=== PATIENT | male | born 1985 ===

== ENCOUNTER 2024-07-26 10:30 | Emergency (ER) | payer BC, SELFPAY ==
--- NOTE | ~2024-07-26 | CT_ITS ---
CLINICAL HISTORY: right sided pleuritic pain, elevated d dimer CT angiography chest with contrast. With MIP MPR Postprocessing. Comparison: chest x-ray from 07/26/2024 Findings: No central pulmonary embolism. No aortic dissection accounting for artifacts. No enlarged mediastinal lymphadenopathy. Mild residual thymic tissue and mild mediastinal fluid present. Mild bibasilar atelectasis. Mild bilateral emphysematous changes. Small right pleural effusion with minimal right basilar opacities. Multifocal ligament calcifications of the thoracic spine. Mild degenerative change of the left shoulder with sclerosis of the bone islands. Mild/borderline steatotic change of the imaged liver IMPRESSION: 1. No central pulmonary embolism. 2. Small right pleural effusion with subsegmental right basilar atelectasis and/or pneumonitis. This document has been electronically signed by: Korey Rivas MD on 07/26/2024 21:06:31
--- NOTE | ~2024-07-26 | US_ITS ---
EXAMINATION: US ABDOMEN LIMITED CLINICAL INFORMATION: Right upper quadrant pain radiating to back.. COMPARISON: None available. TECHNIQUE: Real-time imaging of the right upper quadrant abdominal viscera. FINDINGS: PANCREAS: Visualized portions are unremarkable. LIVER: The liver is normal in size. The liver contour is normal. There is diffusely increased echogenicity with focal foci of fatty sparing. No suspicious focal hepatic lesion. There is no intrahepatic biliary duct dilatation seen. GALLBLADDER: Gallbladder demonstrates numerous intraluminal gallstones, largest measuring up to 8 mm. No wall thickening or pericholecystic fluid. Negative sonographic Treadwell sign. COMMON BILE DUCT: Normal in caliber measuring 0.3 cm in diameter. RIGHT KIDNEY: No hydronephrosis. No renal calculi or focal parenchymal lesions. The kidney measures 12.0 cm in maximum dimension. FREE FLUID: None. US/US abdomen limited IMPRESSION: 1. Diffuse fatty infiltration of the liver with foci of fatty sparing. 2. Cholelithiasis. No sonographic evidence of acute cholecystitis. Electronically signed by: Raffaele Knight MD 07/26/2024 01:27 PM EDT
--- NOTE | ~2024-07-26 | XR_ITS ---
EXAMINATION: XR CHEST 2 VIEWS HISTORY: r abd and chest pain COMPARISON: There are no prior studies for comparison. FINDINGS: PA and lateral views of the chest are submitted. The lungs are expanded and clear. There is no pleural effusion, pneumothorax, or pulmonary vascular congestion. The heart is normal in size. The bones are intact. XR/XR chest 2V IMPRESSION: Normal examination of the chest. Electronically signed by: Naren Aldana MD 07/26/2024 11:12 AM EDT
[2024-07-26 10:37] VITALS: BP 148/93; PULSE 86; RESP 19; TEMP 36.6; O2SAT 98; BMI 31.6
[2024-07-26 11:48] LABS: MANUAL DIFF FLAG NO
[2024-07-26 11:49] LABS: Basophils Absolute Auto 0.1 X10*3/uL (0.0-0.2); Basophils Percent Auto 0.8 % (0-2); Eosinophils Absolute Auto 0.3 X10*3/uL (0.0-0.4); Eosinophils Percent Auto 3.3 % (0-4); Hematocrit 44.6 % (42.0-52.0); Hemoglobin 15.4 g/dl (14.0-18.0); Imm Gran Abs Auto 0.05 X10*3/uL (0.00-0.03); Imm Gran Pct Auto 0.5 % (0.0-0.4); Lymphocytes Absolute Auto 2.4 X10*3/uL (1.2-4.9); Lymphocytes Percent Auto 25.6 % (20-40); Mean Corpuscular HGB Conc 34.5 g/dl (31.0-36.0); Mean Corpuscular Hemoglobin 28.1 pg (27.0-33.0); Mean Corpuscular Volume 81.4 fL (80.0-98.0); Mean Platelet Volume 9.2 fL (9.4-12.4); Monocytes Absolute Auto 0.6 X10*3/uL (0.1-1.2); Monocytes Percent Auto 6.6 % (2-11); Neutrophils Absolute Auto 5.8 x10*3/uL (2.0-8.3); Neutrophils Percent Auto 63.2 % (45-73); Platelet Count 303 X10*3/uL (160-400); Red Blood Count 5.48 X10*6/uL (4.60-5.80); Red Cell Distribution Width 12.4 % (11.0-16.0); White Blood Count 9.2 X10*3/uL (4.8-10.8)
[2024-07-26 11:57] LABS: Prothrombin Time 11.2 SEC (10.9-12.4)
[2024-07-26 12:16] LABS: Alanine Aminotransferase 53 U/L (0-40); Albumin Level 4.4 g/dL (3.5-5.0); Alkaline Phosphatase 52 U/L (39-117); Anion Gap 11 (12-20); Aspartate Amino Transferase 44 U/L (5-37); Bilirubin Direct 0.1 mg/dL (0.0-0.5); Bilirubin Total 0.6 mg/dL (0.0-1.0); Blood Urea Nitrogen 10 mg/dL (9-16); Calcium 9.6 mg/dL (8.4-10.2); Carbon Dioxide 24 mmol/L (22-29); Chloride 108 mmol/L (96-108); Creatinine Clr Calc Pharmacy 147.6; Estimated Glomerular Filt Rate > 60; Glucose Random 89 mg/dL (60-115); Lipase 14 U/L (8-78); Potassium 4.5 mmol/L (3.3-5.1); Sodium 138 mmol/L (135-145); Total Protein 8.2 g/dL (6.5-8.0)
--- NOTE | 2024-07-26 17:31 | ED_ITS ---
HPI - General Adult General Chief complaint: Abdominal Pain Stated complaint: R side pain sent from urgent care Time Seen by Provider: 07/26/24 17:31 History of Present Illness ED Provider: Mike LAMA narrative: The patient is a 38-year-old male. He has a history of being hard of hearing but no other significant past medical history he is aware of. He has not seen a primary care doctor in a long time. The patient says that 3 nights ago on Friday night he developed pain in his right lower chest or right upper abdomen. The pain is worse with taking a deep breath or moving around. He also thinks the pain might be worse after eating but he is not certain. He says the pain waxes and wanes but does not subside. He has not had any definite fevers, sweats, chills. He says about 3 weeks ago he in other members of his family had a flu-like illness. No pain or swelling in his legs. He has never had pain like this before. Related Data Previous Rx's ?Medication ?Instructions ?Recorded ibuprofen 600 mg tablet 600 mg PO Q6H PRN pain #18 tabs 07/26/24 Allergies Allergy/AdvReac Type Severity Reaction Status Date / Time No Known Allergies Allergy Verified 07/26/24 10:39 Review of Systems 2 Review of Systems: Yes all other systems are reviewed and are negative [facility] Social History Social History Advance Directives: No Advance Directives Information Provided: No Do you have a plan to hurt others: No Plan Physical Exam ED Vital Signs: Vital Signs - 24 hr 07/26/24 10:37 07/26/24 17:43 07/26/24 22:40 Temperature 98 F 97.9 F 97.3 F Pulse Rate 86 67 67 Respiratory Rate 19 18 16 Blood Pressure 148/93 H 119/75 140/78 H Pulse Oximetry 98 99 99 Oxygen Delivery Method Room Air Room Air Room Air 07/26/24 22:40 Temperature 97.3 F Pulse Rate 67 Respiratory Rate 16 Blood Pressure 140/78 H Pulse Oximetry 99 Oxygen Delivery Method Room Air BMI result Body Mass Index 31.6 Const Other: The patient is awake and alert. He looks uncomfortable when he changes position. He does not seem in obvious distress otherwise. Orientation/consciousness: patient oriented x3 HENMT Other: Face is symmetrical. Mucous membranes moist. Eyes General: appearance normal, both eyes and all related structures Neck Neck: Yes full ROM, Yes no lymphadenopathy and Yes no JVD Resp Other: The patient seemed to have discomfort with deep breaths. Effort & Inspection: normal respiratory effort Auscultation: clear to auscultation bilaterally Cardio Rate: regular rate Rhythm: regular rhythm Heart sounds: S1 normal heart sound present and S2 normal heart sound present GI Other: Interestingly the patient seemed to have left lower quadrant tenderness. Palpation in the left lower quadrant seemed to exacerbate his pain. He did not seem to have tenderness in the other quadrants. Specifically he did not seem to have right upper quadrant tenderness. Skin General skin exam: no rashes or lesions noted Neuro General: patient oriented x3, gait normal, moves all extremities, no focal motor deficits and CN's II-XI intact bilaterally Extrem Other: No calf swelling or tenderness, no peripheral edema, no asymmetry Medications Administered Discontinued Medications Generic Name Dose Route Start Last Admin Trade Name Freq PRN Reason Stop Dose Admin Sodium Chloride 1,000 mls @ 999 mls/hr 07/26/24 19:15 07/26/24 20:27 Ns IV 07/26/24 20:15 Infused .Q1H1M JASON Infusion Iohexol 100 ml 07/26/24 19:52 07/26/24 19:52 Iohexol 350 Mg/Ml 100 Ml Infus..Btl IV 07/26/24 19:53 65 ml ONCE ONE Administration Ketorolac Tromethamine 10 mg 07/26/24 19:14 07/26/24 19:23 Ketorolac Tromethamine 15 Mg/Ml Vial IVPUSH 07/26/24 19:15 10 mg ONCE ONE Administration Medical Decision Making Medical Decision Making [facility] Narrative: The patient is a 38-year-old male who presents with an almost 3 day history of pain in his right upper abdomen or his right lower chest. It was not clear if this pain seemed to be provoked by eating. The patient seems to describe fairly constant pain over the last 48+ hours although he describes waxing and waning of the pain and he says that the pain might be exacerbated by food. He also describes feeling short of breath and describes the pain being worse with taking deep breaths. At triage the impression had apparently been that this might be a biliary colic syndrome. An ultrasound was ordered that shows gallstones but no signs of cholecystitis. At the time that I saw the patient has he did not seem to have right upper quadrant pain but he did seem to have a lot of pain related to breathing. It was therefore not clear that the patient's pain might be biliary colic. I felt a pulmonary embolism should be considered. A D-dimer was ordered which was elevated. A CT pulmonary angiogram of the chest was therefore ordered. This showed no identifiable pulmonary emboli but did show a small pleural effusion in the right. Given this finding I think the patient might have some form of pleurisy. He has a normal CBC with a normal differential. I do not think he has a pneumonia requiring antibiotics. He describes having a flu-like illness a week or 2 ago as did other members of his family. Perhaps this is a post viral syndrome. His EKG is nonischemic and his troponin is undetectable. The patient was given an IV dose of ketorolac with improvement in his pain. I think he may be discharged with a course of ibuprofen. He will be given a work note for this week. He is not certain if he is currently active with his PCP. He is encouraged to try to establish a definite PCP and get an appointment for follow up. He is also given the contact information for the [facility] surgery office to discuss findings of his multiple gallstones. He is given instructions to follow a low-fat, bland diet. He was given a work note for the next 4 days. He should return if worse. Lab Data 07/26/24 11:44 07/26/24 11:44 Labs: Lab Results 07/26/24 07/26/24 07/26/24 Range/Units 11:44 19:28 21:44 WBC 9.2 (4.8-10.8) X10*3/uL RBC 5.48 (4.60-5.80) X10*6/uL Hgb 15.4 (14.0-18.0) g/dl Hct 44.6 (42.0-52.0) % MCV 81.4 (80.0-98.0) fL MCH 28.1 (27.0-33.0) pg MCHC 34.5 (31.0-36.0) g/dl RDW 12.4 (11.0-16.0) % Plt Count 303 (160-400) X10*3/uL MPV 9.2 L (9.4-12.4) fL Immature Gran % (Auto) 0.5 H (0.0-0.4) % Neut % (Auto) 63.2 (45-73) % Lymph % (Auto) 25.6 (20-40) % [place] % (Auto) 6.6 (2-11) % Eos % (Auto) 3.3 (0-4) % Baso % (Auto) 0.8 (0-2) % Lymph # (Auto) 2.4 (1.2-4.9) X10*3/uL [place] # (Auto) 0.6 (0.1-1.2) X10*3/uL Eos # (Auto) 0.3 (0.0-0.4) X10*3/uL Baso # (Auto) 0.1 (0.0-0.2) X10*3/uL Abs Immat Gran (auto) 0.05 H (0.00-0.03) X10*3/uL Absolute Neuts (auto) 5.8 (2.0-8.3) x10*3/uL Absolute Nucleated RBC 0.000 (0.0-0.012) X10*3/uL Nucleated RBC % (auto) 0.0 (0.0-0.2) /100WBC PT 11.2 (10.9-12.4) SEC INR 1.0 (0.9-1.1) D-Dimer High Sensitivty 366 NG/ML Sodium 138 (135-145) mmol/L Potassium 4.5 (3.3-5.1) mmol/L Chloride 108 (96-108) mmol/L Carbon Dioxide 24 (22-29) mmol/L Anion Gap 11 L (12-20) BUN 10 (9-16) mg/dL Creatinine 0.82 (0.5-1.4) mg/dL Estim Creat Clear Calc 147.6 Estimated GFR > 60 Random Glucose 89 (60-115) mg/dL Calcium 9.6 (8.4-10.2) mg/dL Total Bilirubin 0.6 (0.0-1.0) mg/dL Direct Bilirubin 0.1 (0.0-0.5) mg/dL AST 44 H (5-37) U/L ALT 53 H (0-40) U/L Alkaline Phosphatase 52 (39-117) U/L Troponin I High Sens < 2.7 (<3.5-35.0) ng/L Total Protein 8.2 H (6.5-8.0) g/dL Albumin 4.4 (3.5-5.0) g/dL Lipase 14 (8-78) U/L Urine Color Yellow Urine Appearance Clear Urine pH 6.0 (5.0-9.0) Ur Specific [place] 1.025 (1.005-1.025) Urine Protein 100 (2+) H (Neg-Trace) mg/dL Urine Glucose (UA) Negative (Negative) mg/dL Urine Ketones Trace (Negative) mg/dL Urine Blood Negative (Negative) Urine Nitrite Negative (Negative) Ur Leukocyte Esterase Negative (Negative) Urine RBC 0-2 (0-2) /HPF Urine WBC 0-5 (0-5) /HPF Ur Squamous Epith Cells 0-2 (0-2) /HPF Urine Bacteria None Seen (None Seen) Hyaline Casts 0-2 (0-2) /LPF Discharge Plan Discharge Clinical Impression: Pleurisy, Gallstones Patient Disposition: Home, Self-Care Instructions: Pleurisy (ED), Gallstones (ED) Additional Instructions: Your testing in the emergency room shows that you have gallstones in your gallbladder but it is not clear the gallstones are the reason for the pains you has been experiencing over the last few days. Your CT scan suggest that you may have some irritation of the lining of your right lung. This kind of condition is often called pleurisy. I would recommend taking ibuprofen fairly regularly for the next several days and resting and taking it easy. Please work on getting a primary care doctor. With regard to the gallstones in your gallbladder I would recommend the following: Please contact the surgery office tomorrow for a follow up appointment to discuss your gallstones; please follow a low-fat, bland diet. Meals with fatty food and spicy food can trigger episodes of pain related to gallstones; drink lot of fluids. Return to the emergency room at any time if you feel significantly worse. Prescriptions: New ibuprofen 600 mg tablet 600 mg PO Q6H PRN (Reason: pain) Qty: 18 0RF Referrals: [facility] [place] [facility] [Provider Group] (Gallstones, uncertain if biliary colic) Stand Alone Forms: Work/School Release Interventions: ED Discharge Assessment Last Done: 07/26/24 22:40 Discharge Date/Time: 07/26/24 22:41 Print Language: Spanish
[2024-07-26 17:43] VITALS: BP 119/75; PULSE 67; RESP 18; TEMP 36.6; O2SAT 99
--- OUTSIDE RECORDS SUMMARY | 2024-07-26 18:30 | XMS_ITS | Clinical Summary ---
Author Organization [facility] Address [address] [place] [address] Care Team Providers Care Battery Container Tester Name Role Phone Unavailable Primary Care Provider Unavailabl e Allergies No known active allergies Medications No known medications Active Problems No known active problems Social History Tobacco Use Types Packs/Day Years Used Date Smoking Tobacco: Every Day Smokeless Tobacco: Never Alcohol Use Standard Drinks/Week Comments Not Currently 0 (1 standard drink = 0.6 oz pur e alcohol) Sex and Gender Information Value Date Recorded Sex Assigned at Not on file Gender Identity Not on file Sexual Orientation Not on file Last Filed Vital Signs Vital Sign Reading Time Taken Comments Blood Pressure 130/89 01/11/2020 12:41 PM EDT Pulse 96 01/11/2020 12:41 PM EDT Temperature 36.6 ??C (97.8 ??F) 01/11/2020 12:41 PM E DT Respiratory Rate 16 01/11/2020 12:41 PM EDT Oxygen Saturation 97% 01/11/2020 12:41 PM EDT Inhaled Oxygen Concentration - - Weight 93 kg (205 lb) 01/11/2020 12:41 PM EDT Height 177.8 cm (5' 10 ) 01/11/2020 12:41 PM EDT Body Mass Index 29.41 01/11/2020 12:41 PM EDT Plan of Treatment Health Maintenance Due Date Last Done Comments Hepatitis C Virus Screening 1985 HIV Screening 11/29/2000 DTaP/Tdap/Td Vaccines (1 - Tdap) 11/29/2006 Hepatitis B Vaccines (1 of 3 - 19+ 3-dose series) 11/29/2006 Influenza Vaccine 12/18/2023 01/31/2020 COVID-19 Vaccine ( - 2023-2 5 season) 2024 HPV Vaccines Aged Out No longer eligi ble based on patient's age to complete this topic Pneumococcal Vaccine: Pediat melissa (0-5 Years) and At-Risk Patients (6 to 49 Years) Aged Out No longer eligible b ased on patient's age to complete this topic Siva Arana Personal/Family Self 1985 [address] [place] [address]
--- OUTSIDE RECORDS SUMMARY | 2024-07-26 18:30 | XMS_ITS | Clinical Summary ---
Author Organization [facility] Address [address] [place] [address] Care Team Providers Care Registered Midwife Name Role Phone Melina Cox MD Primary Care Provide r Surgical History Surgery Date Site/Laterality Comments OTHER SURGICAL HISTORY PROCEDURE: DENIES PREVIOUS SURGERY Medical History Medical History Date Comments Hypertension DX:Hypertension Hyperlipidemia DX:Hyperlipidemi a Family History Medical History Relation Name Comments Coronary artery disease Neg Hx Diabetes Neg Hx Hypertension Neg Hx Other cancer Neg Hx Relation Name Status Comments Father Alive Mother Alive Social History Tobacco Use Types Packs/Day Years Used Date Smoking Tobacco: Former Smokeless Tobacco: Never Alcohol Use Standard Drinks/Week Comments No 0 (1 standard drink = 0.6 oz pur e alcohol) Sex and Gender Information Value Date Recorded Sex Assigned at Not on file Legal Sex Male 11:45 PM EST Gender Identity Not on file Sexual Orientation Not on file Obstetrics History Plan of Treatment Health Maintenance Due Date Last Done Comments Hepatitis B Vaccines (1 of 3 - 19+ 3-dose series) 11/29/2006 DTaP,Tdap,and Td Vaccines (2 - Td or Tdap) 07/12/2018 07/12/2008 COVID-19 Vaccine ( - 2023-2 5 season) 2024 Influenza Vaccine (#1) 2024 HIB Vaccines Aged Out No longer eligi ble based on patient's age to complete this topic HPV Vaccines Aged Out No longer eligi ble based on patient's age to complete this topic Hepatitis A Vaccines Aged Out No long er eligible based on patient's age to complete this topic IPV Vaccines Aged Out No longer eligi ble based on patient's age to complete this topic MMR Vaccines Aged Out No longer eligi ble based on patient's age to complete this topic Meningococcal ACWY Vaccine Aged Out N o longer eligible based on patient's age to complete this topic Meningococcal B Vacine Aged Out No lo nger eligible based on patient's age to complete this topic Pneumococcal Vaccine: Pediat rics (0 to 5 Years) and At-Risk Patients (6 to 64 Years) Aged Out No longer eligi ble based on patient's age to complete this topic RSV Immunization Patients Un josh 20 months Aged Out No longer eligible b ased on patient's age to complete this topic Varicella Vaccines Aged Out No longer eligible based on patient's age to complete this topic Care Teams Registered Midwife Relationship Specialty Start Date End Date Melina Cox MD PCP - General Internal Medicine 12/30/18
[2024-07-26 18:39] LABS: D Dimer High Sensitivity 366 NG/ML
[2024-07-26] MEDS: Ketorolac Tromethamine 15 MG/ML VIAL 10 MG IVPUSH (19:23)
[2024-07-26] MEDS: 0.9 % Sodium Chloride 1,000 ML 999 ML IV (19:26)
[2024-07-26 19:35] LABS: Appearance Urine Clear; Color Urine Yellow; Glucose Urine UA Negative (Negative); Leukocyte Esterase Urine Negative (Negative); Nitrite Urine Negative (Negative); Specific Gravity - Urine 1.025 (1.005-1.025); UMIC TRIGGER UACC YES; Urine Blood Negative (Negative); Urine Ketones Trace mg/dL (Negative); Urine Protein 100 (2+) mg/dL (Neg-Trace)
[2024-07-26 19:41] LABS: Bacteria Urine None Seen (None Seen); Hyaline Casts Urine 0-2 /LPF (0-2); RBC Urine 0-2 /HPF (0-2); Squamous Epithelial Cell Urine 0-2 /HPF (0-2); WBC Urine 0-5 /HPF (0-5)
--- NOTE | 2024-07-26 19:45 | PC.NURSE ---
a&ox4. vss and up to date. pt presents to the ED c/o right sided generalized abd pain x 3 days. denies radiation/nausea/vomiting/diarrhea/fever/chills. abd tender to the touch. 20gIV placed in the left AC - IVF/medication administered per provider order. effectiveness pending. pt ambulates to the restroom w/ a strong/steady gait. no use of assistive devices needed. on RA w/o difficulty. no sob/wob noted. respirations even/unlabored. plan of care ongoing.
[2024-07-26] MEDS: iohexoL 350 MG/ML 100 ML INFUS..BTL IV (19:52)
--- NOTE | 2024-07-26 21:25 | PHA.MEDREC ---
Addendum entered by Ira Sood RPh 07/26/24 21:49: [facility] reviewed Original Note: Pharmacy Consult ? Medication Reconciliation Pharmacy has completed the medication reconciliation. Spoke with patient and he confirmed he is not taking any medications at this time OTC or prescription.
--- NOTE | 2024-07-26 21:27 | ECG_ITS ---
Test Reason : r sided funes Blood Pressure : */* mmHG Vent. Rate : 62 BPM Atrial Rate : 62 BPM P-R Int : 164 ms QRS Dur : 82 ms QT Int : 406 ms P-R-T Axes : -5 1 0 degrees QTcB Int : 412 ms Normal sinus rhythm Minimal voltage criteria for LVH, may be normal variant ( R in aVL ) Borderline ECG No previous ECGs available Referred By: Gil Mckeon Electronically Signed By: GABRIEL LACEY
[2024-07-26 22:20] LABS: Troponin-I High Sensitivity < 2.7 ng/L (<3.5-35.0)
[2024-07-26 22:40] VITALS: BP 140/78; PULSE 67; RESP 16; TEMP 36.3; O2SAT 99
== END 2024-07-26 22:41 | disposition home or self-care (01) ==
PROVIDERS: Emergency Provider Emergency Medicine
DX: R09.1 Pleurisy (principal); K80.20 Calculus of gallbladder without cholecystitis without obstruction; R06.02 Shortness of breath
CPT/HCPCS: 36415; 71046; 71275; 76705; 80048; 80076; 81001; 83690; 84484; 85025; 85379; 85610; 93005; 96361; 96374; 99284; J1885; Q9967

== ENCOUNTER → 2024-07-26 10:40 | Outpatient (BNV) | payer BC, SELFPAY | PROVIDERS: Visit Provider Radiology Diagnostic Radiology | DX: J90 Pleural effusion, not elsewhere classified (principal); K80.20 Calculus of gallbladder without cholecystitis without obstruction; K76.0 Fatty (change of) liver, not elsewhere classified; R07.9 Chest pain, unspecified; R10.9 Unspecified abdominal pain | CPT/HCPCS: 71046; 71275; 76705 ==

== ENCOUNTER → 2024-07-26 21:27 | Outpatient (BNV) | payer BC, SELFPAY | PROVIDERS: Emergency Provider Emergency Medicine; Visit Provider Internal Medicine | DX: R07.9 Chest pain, unspecified (principal) | CPT/HCPCS: 93010 ==

== ENCOUNTER 2024-08-02 11:05 | Outpatient (AMB) | payer BC, SELFPAY ==
--- NOTE | 2024-08-02 11:09 | A.OFFVIS_ITS ---
Intake Visit Reasons: Calculus of GB Intake Note: Patient referred after ER visit for Calculus of Gallbladder. Patient c/o: bothersome when eating a lot, diarrhea. ABD US: 07-26-2024 Livestock Commission Agent Required: No Allergies No Known Allergies Allergy (Verified 08/02/24 11:12) HPI Comments Details: Patient presents status post ER visit for upper abdominal/right upper quadrant pain. He has had several episodes of this. They include postprandial pain in the right upper quadrant radiating around to his back. He is unsure if fatty foods aggravate symptoms Because of persistence of symptoms, he went to the ER with workup including sonogram demonstrates cholelithiasis. Patient has regular bowel habits or we will periodically have loose stool. He has never been jaundiced before. No prior abdominal surgeries. Chart was reviewed and patient evaluated Physical Exam Eyes Other: Anicteric Chest Other: Chest breath sounds bilaterally, HS 1 in 2 GI Other: Abdomen moderately corpulent, soft, benign Assessment & Plan Assessment & Plan (1) Recurrent biliary colic: Code(s): K80.50 - Calculus of bile duct without cholangitis or cholecystitis without obstruction Category: Medical Plan Therapeutic options include conservative therapy or laparoscopic cholecystectomy. Patient was like to proceed with the latter. Risks, benefits, alternatives laparoscopic possible open cholecystectomy reviewed with the patient included but not limited to bleeding, infection, recurrence of symptoms, numbness, pain, scarring, bowel or bile duct injury or leak and the patient wishes to proceed. All questions answered. Arrangements were made for this on a day which is convenient for him. Coding Level of Care Code New Pt Level 5 (36787) Diagnoses Recurrent biliary colic K80.50
== END 2024-08-02 11:54 | disposition home or self-care (01) ==
LOC: HO.HGS 11:06
PROVIDERS: Visit Provider Surgery
DX: K80.50 Calculus of bile duct without cholangitis or cholecystitis without obstruction (principal)
CPT/HCPCS: 99204

== ENCOUNTER 2024-11-16 13:26 | Outpatient (AMB) | payer OTHER, SELFPAY ==
--- OUTSIDE RECORDS SUMMARY | 2024-09-21 10:30 | XMS_ITS ---
Author [facility] Address [address] [place] [address] Care Team Providers Care Real Estate Appraiser Supervisor Name Role Phone ROSANGELA MEGHAN Unavailable [phone] REASON FOR VISIT annual Encounters Encounter Location Date Provider Diagnosis [facility] [address] [place] [address] 09/21/2024 MEGHAN ADAMES Plan Of Treatment No Information Progress Notes * Siva EDDYDOB:1985 (38 yo M)Acc No.[id number]:09/21/2024 CPE Patient: Siva SIMENTAL Provider: Robert ADAMES PA-C :1985 A ge:38 Y S ex:Male Date:09/21/2024 Address:[address] [place] [address] [facility] Subjective: * Chief Complaints: * 1 . Annual. * Medical History: Objective: * Vitals: Assessment: Plan: * Treatment: * Images: Billing Information: * Visit Code: * Procedure Codes: Care Plan Details* * Electronic signature of NAKUL ADAMES PA-C on 11/16/2024 at 02:36 PM EDT Sign off status: Pending * Provider: Robert ADAMES PA-C Date: 09/21/2024 Generated for Alba underwood/Vahe/eTransmitting on: 11/16/2024 02:36 PM EDT
--- NOTE | 2024-11-16 13:54 | MHC.OFFVIS ---
Vital Signs 11/16/24 13:59 Height 5 ft 10 in Weight 221 lb BMI 31.7 BP 154/96 H Blood Pressure Location Lt brachial Position Sitting Pulse 88 Intake Visit Reasons: discuss lap dilip Intake Note: Patient of Dr Horton is seen in office to discuss laparoscopic cholecystectomy. Pt c/o:continued pain, worse when after meals, denies n/v/d/c L.OV:08/02/24 Customer Solutions Coordinator Required: No Accompanied by: Self / Same As Patient Allergies No Known Allergies Allergy (Verified 11/16/24 14:00) Medication List - Last Reconciled 11/16/24 by Mushtaq Rosario MD ibuprofen 600 mg PO Q6H PRN losartan 25 mg PO DAILY HPI Comments Details: 38-year-old male patient previously evaluated by Dr. Horton for biliary colic now returning with continued abdominal pain felt in the epigastrium and left upper quadrant. The pain seems to be associated with fatty foods and occurs several minutes this is several hours after eating. He denies any nausea, vomiting, fever or chills. His bowels have been normal as well. Previous workup in the emergency department with ultrasound of the abdomen revealed numerous gallstones within the gallbladder without secondary evidence of acute cholecystitis including no wall thickening, pericholecystic fluid or tenderness over the gallbladder. Since this time the pain seems to be increasing in severity and frequency and he presents today to discuss possible cholecystectomy. [facility] Medical History (Updated 11/16/24 @ 15:16 by Mushtaq Rosario MD) Hypertension Review of Systems Const All systems reviewed & are unremarkable except as noted in HPI and below Physical Exam Vital Signs: Last Vital Signs Pulse 88 11/16/24 13:59 BP 154/96 H 11/16/24 13:59 BMI result Body Mass Index 31.7 Const General: cooperative and no acute distress Nutritional Appearance: well nourished Orientation/consciousness: patient oriented x3 Limitations: no limitations HEENT Head: Yes normocephalic and Yes atraumatic Ears: hearing grossly normal bilaterally Resp Effort & Inspection: normal respiratory effort, no audible wheezes, no cough and no respiratory distress Cardio Jugular venous distension: no JVD GI Inspection: Yes normal to inspection Palpation (GI): Soft to palpation, nontender, no guarding, not rigid and No hepatosplenomegaly present Percussion: Yes normal to percussion Auscultation: normal bowel sounds Rectal Exam - Male: Yes deferred Skin Other: Warm, dry, no rash Neuro General: patient oriented x3 Extrem General: Yes no clubbing, cyanosis or edema Assessment & Plan Assessment & Plan (1) Recurrent biliary colic: Code(s): K80.50 - Calculus of bile duct without cholangitis or cholecystitis without obstruction Category: Medical Plan 38-year-old male patient presenting with fatty food intolerance and persistent upper abdominal pain found to have multiple gallstones within the gallbladder. Patient's history and exam is suggestive of biliary colic which seems to be progressing in severity and frequency. We discussed laparoscopic or possible open cholecystectomy including the procedure, risks, and alternatives, he consents to the surgery and will schedule at his convenience. Coding Level of Care Code Est Pt Level 4 (74764) Diagnoses Recurrent biliary colic K80.50
[2024-11-16 13:59] VITALS: BP 154/96; PULSE 88; BMI 31.7
--- OUTSIDE RECORDS SUMMARY | 2024-11-16 14:37 | XMS_ITS | Clinical Summary ---
Author Organization [facility] Address [address] [place] [address] Care Team Providers Care Shock Absorption Floor Layer Name Role Phone Unavailable Primary Care Provider [...] at Not on file Legal Sex Male 12:23 PM EDT Gender Identity Not on file Sexual Orientation Not on file Last Filed Vital Signs Vital Sign Reading Time Taken Comments Blood Pressure 130/89 01/11/2020 12:41 PM EDT Pulse 96 01/11/2020 12:41 PM EDT Temperature 36.6 C (97.8 F) 01/11/2020 12:41 PM EDT Respiratory Rate 16 01/11/2020 12:41 PM EDT [...] of 3 - 19+ 3-dose series) 11/29/2006 COVID-19 Vaccine ( - 2023-2 5 season) 2024 Influenza Vaccine 12/17/2024 01/31/2020 HPV Vaccines Aged Out No longer eligi ble based on patient's age to complete this topic Pneumococcal Vaccine: Pediat melissa (0-5 Years) and At-Risk Patients (6 to 49 Years) Aged Out No longer eligible b ased on patient's age to complete this topic Insurance [employer]
--- OUTSIDE RECORDS SUMMARY | 2024-11-16 14:37 | XMS_ITS | Clinical Summary ---
Author Organization [facility] ity Address [address] [place] [address] Care Team Providers Care Enterprise Application Architect Name Role Phone Melina Cox MD Primary [...] Td or Tdap) 07/12/2018 07/12/2008 COVID-19 Vaccine (1 - 2023-2 5 season) 2024 Influenza Vaccine (#1) 2025 HIB Vaccines Aged Out No longer eligi [...] age to complete this topic Meningococcal B Vaccine Aged Out No l onger eligible based on patient's age to complete [...] age to complete this topic Care Teams Enterprise Application Architect Relationship Specialty Start Date End Date Melina Cox MD PCP - General Internal Medicine 12/30/18
== END 2024-11-16 14:43 | disposition home or self-care (01) ==
LOC: HO.HGS 13:27
PROVIDERS: Visit Provider Surgery
DX: K80.50 Calculus of bile duct without cholangitis or cholecystitis without obstruction (principal)
CPT/HCPCS: 99214

== ENCOUNTER 2025-02-03 05:44 | Day surgery (SDC) | payer OTHER, SELFPAY ==
--- OUTSIDE RECORDS SUMMARY | 2024-09-21 10:30 | XMS_ITS ---
Author Organization [facility] [address] Address [address] [place] [address] Care Team Providers Care Senior Sales Consultant Name Role Phone ROSANGELA MEGHAN Unavailable [phone] REASON FOR VISIT annual Encounters Encounter Location Date Provider Diagnosis [facility] [address] [place] [address] 09/21/2024 MEGHAN ADAMES Plan Of Treatment Next Appt Details Provider Name:MEGHAN ADAMES, 09:15:00 AM, [address] , [place], [address], Progress Notes * Siva EDDYDOB:1985 (39 yo M)Acc No.[id number]:09/21/2024 CPE Patient: Siva SIMENTAL Provider: Robert ADAMES PA-C :1985 A ge:38 Y S ex:Male Date:09/21/2024 Address:[address] [place], [place] [address] Subjective: * Chief Complaints: * 1 . Annual. * Medical History: Objective: * Vitals: Assessment: Plan: * Treatment: * Images: Billing Information: * Visit Code: * Procedure Codes: Care Plan Details* * Electronic signature of NAKUL ADAMES PA-C on 01/28/2025 at 05:35 PM EDT Sign off status: Pending * Provider: Robert ADAMES PA-C Date: 0 09/21/2024 Generated for Alba underwood/Vahe/eTransmitting on: 0 01/28/2025 05:35 PM EDT
--- OUTSIDE RECORDS SUMMARY | 2024-12-17 06:45 | XMS_ITS ---
Author Organization [facility] [address] Address [address] [place] [address] Care Team Providers Care First Leveler Name Role Phone MEGHAN ADAMES Unavailable [phone] Encounters Encounter Location Date Provider Diagnosis [facility] [address] [place] [address] 12/17/2024 MEGHAN ADAMES Plan Of Treatment Next Appt Details Provider Name:MEGHAN ADAMES, 09:15:00 AM, [address] , [place], [address], Progress Notes * Siva EDDYDOB:1985 (39 yo M)Acc No.[id number]:12/17/2024 CPE Patient: Dolores WOOD [place] Provider: Robert ADAMES PA-C :1985 A ge:39 Y S ex:Male Date:12/17/2024 Address:[address] [place], [place] [address] Subjective: * Chief Complaints: * * Medical History: Objective: * Vitals: Assessment: Plan: * Treatment: * Images: Billing Information: * Visit Code: * Procedure Codes: Care Plan Details* * Electronic signature of NAKUL ADAMES PA-C on 01/28/2025 at 05:35 PM EDT Sign off status: Pending * Provider: Robert ADAMES PA-C Date: 0 12/17/2024 Generated for Alba underwood/Vahe/eTransmitting on: 0 01/28/2025 05:35 PM EDT
--- OUTSIDE RECORDS SUMMARY | 2025-01-28 05:45 | XMS_ITS ---
Author Organization [facility] Address [address] [place] [address] Care Team Providers Care Electric Meter Repairer Name Role Phone MEGHAN ADAMES Unavailable [phone] Allergies No Known Allergies Reason For Referral Reason Evaluate & Treat Diagnosis 1 Vision changes (H53. 9) Referral Organization [facility] Referring Provider First Name MEGHAN Referring Provider Last Name ROSANGELA Referring Provider Speciality Internal M edicine Referred Provider Specialty Ophthalmolog y General Notes Elisabeth Michaels 2024 10:12:56 AM > dr quach, [phone], [phone] Referral Priority Routine Reason Evaluate & Treat Diagnosis 1 Contusion of unspeci fied finger with damage to nail, initial encounter (S60.10XA) Referral Organization [facility] Referring Provider First Name MEGHAN Referring Provider Last Name ROSANGELA Referring Provider Speciality Internal edicine Referred Provider Specialty Hand Surgery General Notes Elisabeth Michaels 2024 10:13:48 AM > hand specialist Referral Priority Routine REASON FOR VISIT Patient is here for His Annual Physical Exams. Labs have not been completed for this visit. No medical history has changed Medications Medication SIG (Take, Route, Frequency, Duration) Notes Start Date End Date Status Lexapro 5 MG 1 tablet Orally Once a day; Duration: 30 days 01/28/2025 Active Losartan Potassium 25 MG 1 tablet Orally Once a day; Duration: 90 days 08/17/2024 Active Immunizations Vaccine Route Administration Date Status Comme nts Tdap IM Intramuscular 01/28/2025 Administered Problems Problem Type SNOMED Code ICD Code Onset Dates Problem Status W/U Status Risk Notes Problem Reactive depression (33866186) Reactive depression (F32.9) Active confirmed Problem Unable to concentrate (finding) (38134194) Difficulty concentrating (R41.840) Active confirmed Vital Signs Blood pressure systolic 142 mm Hg 01/29/20 25 Blood pressure diastolic 92 mm Hg 025 Heart Rate 71 /min 01/28/2025 Height 69 in 01/28/2025 Weight 219.0 lbs 01/28/2025 BMI 32.34 kg/m2 01/28/2025 Oximetry 96 % 01/28/2025 Encounters Encounter Location Date Provider Diagnosis [facility] [address] [place] [address] 01/28/2025 MEGHAN ROSANGELA Gall stones K80.20 ; Adult general medical exam Z00.00 ; Anxiety F41.9 ; Hearing loss of right ear, unspecified hearing loss type H91.91 ; Hypertension, essential I10 ; Reactive depression F32.9 ; Difficulty concentrating R41.840 and Encounter for examination of blood pressure without abnormal findings Z01.30 Assessments Encounter Date Diagnosis (ICD Code) Assessment Notes Treatment Notes Treatment Clinical Notes Section Notes 01/28/2025 Gall stones (ICD-10 - K80.20) Chuck is a pleasant 39-year-old male with a past medical history of hypertension, hearing loss, anxiety, depression who presents to the office today for an annual exam #Health maintenance: Tetanus vaccination given to patient in office, eye doctor referral placed today as patient states that he is having slight vision concerns, states that he does follow regularly with a dentist every 6 months, up-to-date on flu vaccination, no longer receives updated COVID vaccinations. PHQ-9 value is 5, more than likely contributory towards his trouble concentrating and increased feelings of anxiety. #Hypertension: Continue losartan potassium 25 mg tablets, patient fully educated to not discontinue taking this medication as it is imperative for adequate blood pressure management and control. #Abdominal pain: Patient constantly is stating that his right upper quadrant is bothersome, more than likely due to the cholelithiasis concern, we will fax note over to [facility]. #Cholelithiasis: Will reach out to [facility] as patient admits that the surgeon is awaiting a PCP clearance. At this time as long as patient's blood pressure is controlled and he continues to be compliant with his losartan 25 mg tablets daily, he is cleared for surgery. We are waiting on lab values, patient has not yet had a lab work completed through our office. #Anxiety/depression: Will be beginning patient on Lexapro 5 mg tablets daily. Patient admits that he feels as though he is more anxious around large groups of people which also inhibits him from focusing. Educated on different side effects of Lexapro that include but not limited to increased feelings of self-harm, increased feelings of anxiety/depression/l ow libido/headaches and insomnia. Will be following up with patient in 6 weeks to see how he is doing on the medication. #Fingernail trauma: Placing a referral to hand specialist as patient admits that back in November he was seen by urgent care as he did sliced his finger when he was cutting down a tree. At this time nailbed seems to be not intact, there is trauma around the nailbed, patient more than likely will benefit from nailbed debridement or removal. No signs and symptoms of concern for infection or paronychia. Obtaining CBC, if the white blood cell count is elevated consider adding antibiotics for prophylaxis. Physical Men Patient seen and examined. Comprehensive discussion was done on the following. 1. Nutrition: It is important to follow a healthy diet based on lots of vegetables and legumes and good fat. Avoid processed food and processed carbohydrates. Learn to prepare your own meals. Learn to read labels and avoid high fructose corn syrup, processed chemicals added to increase shelf life and preprepared meals. Avoid fast foods. Learn to eat slowly and plan meals for a week. Try to count calories and be mindful off daily calorie intake. Get into the habit of keeping an eye on your weight by using an appropriate scale. Learn to log exercise and discussed fitness Apps like [employer] which can help keep log off calories taken versus calories burned. Local food should be preferred. Discussed Dirty Dozen Versus Clean Fifteen. Discussed healthy supplements like fish oil, Tumeric, Curcumin, Melatonin, Resveratrol, Probiotics, Vitamin-D, Alpha-Lipoic acid, Vitamin-D and coconut oil. 2. It is important to exercise regularly. Is a good habit to walk at least 30-45 minutes a day. Gentle weightlifting with standard precautions to protect the back. Finding activity like cycling or hiking and get into the habit of engaging in it. Stretching before and after the exercises important. It is also important to contact me if there are any problems like shortness of breath, chest pain, back pain and joint or muscle pain associated with the exercise. 3. Discussed age appropriate screening guidelines. Colonoscopy needs to start at age 50 with stool for occult blood as appropriate. There is a new test that can test for genetic abnormalities in the stool sample. This would not replace a colonoscopy but could be used as a screening tool for patients who do not want a colonoscopy. We discussed the importance of early detection of colon cancer. 4. Discussed current PSA screening. PSA screening can be done in most patients between age 50 and 65. However early detection of prostate cancer needs to carefully be balanced with complications with treatment. These include incontinence, impotence etc. Each patient should decide if they would like to have this test. 5. Discussed safe driving and no use of smart phone while driving 6. Age-appropriate immunizations were discussed. A tetanus booster is needed every 10 years. Flu vaccine is recommended every year just before the start of the flu season. Shingles vaccine is recommended after age 50 but not all insurances cover it. Pneumonia vaccine is given after age 65 unless there are certain comorbidities for which it is started earlier. 7. Diagnostic labs were discussed. These could include CBC CMP and lipids with fasting blood glucose and insulin levels. Vitamin D and hemoglobin A1c testing might be appropriate. All questions have been answered to patient's satisfaction. Patient verbalized understanding of diagnosis and treatments explained. Advised to call sooner prior to next visit it any questions/concerns arise. Case discussed with Cynthia MARTÍNEZ who reviewed the assessment and plan. Chart, medications, labs, vital signs reviewed. Dictation was accomplished with the use of [employer] voice recognition software, which is prone to medical misidentifications and grammatical errors. This are unintentional and the practitioner does try to identify and correct these, but some could still be present. Please do not hesitate to contact practitioner for clarification. 01/28/2025 Adult general medical exam (ICD-10 - Z00.00) Chuck is a pleasant 39-year-old male with a past medical history of hypertension, hearing loss, anxiety, depression who presents to the office today for an annual exam #Health maintenance: Tetanus vaccination given to patient in office, eye doctor referral placed today as patient states that he is having slight vision concerns, states that he does follow regularly with a dentist every 6 months, up-to-date on flu vaccination, no longer receives updated COVID vaccinations. PHQ-9 value is 5, more than likely contributory towards his trouble concentrating and increased feelings of anxiety. #Hypertension: Continue losartan potassium 25 mg tablets, patient fully educated to not discontinue taking this medication as it is imperative for adequate blood pressure management and control. #Abdominal pain: Patient constantly is stating that his right upper quadrant is bothersome, more than likely due to the cholelithiasis concern, we will fax note over to [facility]. #Cholelithiasis: Will reach out to [facility] as patient admits that the surgeon is awaiting a PCP clearance. At this time as long as patient's blood pressure is controlled and he continues to be compliant with his losartan 25 mg tablets daily, he is cleared for surgery. We are waiting on lab values, patient has not yet had a lab work completed through our office. #Anxiety/depression: Will be beginning patient on Lexapro 5 mg tablets daily. Patient admits that he feels as though he is more anxious around large groups of people which also inhibits him from focusing. Educated on different side effects of Lexapro that include but not limited to increased feelings of self-harm, increased feelings of anxiety/depression/l ow libido/headaches and insomnia. Will be following up with patient in 6 weeks to see how he is doing on the medication. #Fingernail trauma: Placing a referral to hand specialist as patient admits that back in November he was seen by urgent care as he did sliced his finger when he was cutting down a tree. At this time nailbed seems to be not intact, there is trauma around the nailbed, patient more than likely will benefit from nailbed debridement or removal. No signs and symptoms of concern for infection or paronychia. Obtaining CBC, if the white blood cell count is elevated consider adding antibiotics for prophylaxis. Physical Men Patient seen and examined. Comprehensive discussion was done on the following. 1. Nutrition: It is important to follow a healthy diet based on lots of vegetables and legumes and good fat. Avoid processed food and processed carbohydrates. Learn to prepare your own meals. Learn to read labels and avoid high fructose corn syrup, processed chemicals added to increase shelf life and preprepared meals. Avoid fast foods. Learn to eat slowly and plan meals for a week. Try to count calories and be mindful off daily calorie intake. Get into the habit of keeping an eye on your weight by using an appropriate scale. Learn to log exercise and discussed fitness Apps like [employer] which can help keep log off calories taken versus calories burned. Local food should be preferred. Discussed Dirty Dozen Versus Clean Fifteen. Discussed healthy supplements like fish oil, Tumeric, Curcumin, Melatonin, Resveratrol, Probiotics, Vitamin-D, Alpha-Lipoic acid, Vitamin-D and coconut oil. 2. It is important to exercise regularly. Is a good habit to walk at least 30-45 minutes a day. Gentle weightlifting with standard precautions to protect the back. Finding activity like cycling or hiking and get into the habit of engaging in it. Stretching before and after the exercises important. It is also important to contact me if there are any problems like shortness of breath, chest pain, back pain and joint or muscle pain associated with the exercise. 3. Discussed age appropriate screening guidelines. Colonoscopy needs to start at age 50 with stool for occult blood as appropriate. There is a new test that can test for genetic abnormalities in the stool sample. This would not replace a colonoscopy but could be used as a screening tool for patients who do not want a colonoscopy. We discussed the importance of early detection of colon cancer. 4. Discussed current PSA screening. PSA screening can be done in most patients between age 50 and 65. However early detection of prostate cancer needs to carefully be balanced with complications with treatment. These include incontinence, impotence etc. Each patient should decide if they would like to have this test. 5. Discussed safe driving and no use of smart phone while driving 6. Age-appropriate immunizations were discussed. A tetanus booster is needed every 10 years. Flu vaccine is recommended every year just before the start of the flu season. Shingles vaccine is recommended after age 50 but not all insurances cover it. Pneumonia vaccine is given after age 65 unless there are certain comorbidities for which it is started earlier. 7. Diagnostic labs were discussed. These could include CBC CMP and lipids with fasting blood glucose and insulin levels. Vitamin D and hemoglobin A1c testing might be appropriate. All questions have been answered to patient's satisfaction. Patient verbalized understanding of diagnosis and treatments explained. Advised to call sooner prior to next visit it any questions/concerns arise. Case discussed with Cynthia MARTÍNEZ who reviewed the assessment and plan. Chart, medications, labs, vital signs reviewed. Dictation was accomplished with the use of [employer] voice recognition software, which is prone to medical misidentifications and grammatical errors. This are unintentional and the practitioner does try to identify and correct these, but some could still be present. Please do not hesitate to contact practitioner for clarification. 01/28/2025 Anxiety (ICD-10 - F41.9) Chuck is a pleasant 39-year-old male with a past medical history of hypertension, hearing loss, anxiety, depression who presents to the office today for an annual exam #Health maintenance: Tetanus vaccination given to patient in office, eye doctor referral placed today as patient states that he is having slight vision concerns, states that he does follow regularly with a dentist every 6 months, up-to-date on flu vaccination, no longer receives updated COVID vaccinations. PHQ-9 value is 5, more than likely contributory towards his trouble concentrating and increased feelings of anxiety. #Hypertension: Continue losartan potassium 25 mg tablets, patient fully educated to not discontinue taking this medication as it is imperative for adequate blood pressure management and control. #Abdominal pain: Patient constantly is stating that his right upper quadrant is bothersome, more than likely due to the cholelithiasis concern, we will fax note over to [facility]. #Cholelithiasis: Will reach out to [facility] as patient admits that the surgeon is awaiting a PCP clearance. At this time as long as patient's blood pressure is controlled and he continues to be compliant with his losartan 25 mg tablets daily, he is cleared for surgery. We are waiting on lab values, patient has not yet had a lab work completed through our office. #Anxiety/depression: Will be beginning patient on Lexapro 5 mg tablets daily. Patient admits that he feels as though he is more anxious around large groups of people which also inhibits him from focusing. Educated on different side effects of Lexapro that include but not limited to increased feelings of self-harm, increased feelings of anxiety/depression/l ow libido/headaches and insomnia. Will be following up with patient in 6 weeks to see how he is doing on the medication. #Fingernail trauma: Placing a referral to hand specialist as patient admits that back in November he was seen by urgent care as he did sliced his finger when he was cutting down a tree. At this time nailbed seems to be not intact, there is trauma around the nailbed, patient more than likely will benefit from nailbed debridement or removal. No signs and symptoms of concern for infection or paronychia. Obtaining CBC, if the white blood cell count is elevated consider adding antibiotics for prophylaxis. Physical Men Patient seen and examined. Comprehensive discussion was done on the following. 1. Nutrition: It is important to follow a healthy diet based on lots of vegetables and legumes and good fat. Avoid processed food and processed carbohydrates. Learn to prepare your own meals. Learn to read labels and avoid high fructose corn syrup, processed chemicals added to increase shelf life and preprepared meals. Avoid fast foods. Learn to eat slowly and plan meals for a week. Try to count calories and be mindful off daily calorie intake. Get into the habit of keeping an eye on your weight by using an appropriate scale. Learn to log exercise and discussed fitness Apps like [employer] which can help keep log off calories taken versus calories burned. Local food should be preferred. Discussed Dirty Dozen Versus Clean Fifteen. Discussed healthy supplements like fish oil, Tumeric, Curcumin, Melatonin, Resveratrol, Probiotics, Vitamin-D, Alpha-Lipoic acid, Vitamin-D and coconut oil. 2. It is important to exercise regularly. Is a good habit to walk at least 30-45 minutes a day. Gentle weightlifting with standard precautions to protect the back. Finding activity like cycling or hiking and get into the habit of engaging in it. Stretching before and after the exercises important. It is also important to contact me if there are any problems like shortness of breath, chest pain, back pain and joint or muscle pain associated with the exercise. 3. Discussed age appropriate screening guidelines. Colonoscopy needs to start at age 50 with stool for occult blood as appropriate. There is a new test that can test for genetic abnormalities in the stool sample. This would not replace a colonoscopy but could be used as a screening tool for patients who do not want a colonoscopy. We discussed the importance of early detection of colon cancer. 4. Discussed current PSA screening. PSA screening can be done in most patients between age 50 and 65. However early detection of prostate cancer needs to carefully be balanced with complications with treatment. These include incontinence, impotence etc. Each patient should decide if they would like to have this test. 5. Discussed safe driving and no use of smart phone while driving 6. Age-appropriate immunizations were discussed. A tetanus booster is needed every 10 years. Flu vaccine is recommended every year just before the start of the flu season. Shingles vaccine is recommended after age 50 but not all insurances cover it. Pneumonia vaccine is given after age 65 unless there are certain comorbidities for which it is started earlier. 7. Diagnostic labs were discussed. These could include CBC CMP and lipids with fasting blood glucose and insulin levels. Vitamin D and hemoglobin A1c testing might be appropriate. All questions have been answered to patient's satisfaction. Patient verbalized understanding of diagnosis and treatments explained. Advised to call sooner prior to next visit it any questions/concerns arise. Case discussed with Cynthia MARTÍNEZ who reviewed the assessment and plan. Chart, medications, labs, vital signs reviewed. Dictation was accomplished with the use of [employer] voice recognition software, which is prone to medical misidentifications and grammatical errors. This are unintentional and the practitioner does try to identify and correct these, but some could still be present. Please do not hesitate to contact practitioner for clarification. 01/28/2025 Hearing loss of right ear, unspecified hearing loss type (ICD-10 - H91.91) Chuck is a pleasant 39-year-old male with a past medical history of hypertension, hearing loss, anxiety, depression who presents to the office today for an annual exam #Health maintenance: Tetanus vaccination given to patient in office, eye doctor referral placed today as patient states that he is having slight vision concerns, states that he does follow regularly with a dentist every 6 months, up-to-date on flu vaccination, no longer receives updated COVID vaccinations. PHQ-9 value is 5, more than likely contributory towards his trouble concentrating and increased feelings of anxiety. #Hypertension: Continue losartan potassium 25 mg tablets, patient fully educated to not discontinue taking this medication as it is imperative for adequate blood pressure management and control. #Abdominal pain: Patient constantly is stating that his right upper quadrant is bothersome, more than likely due to the cholelithiasis concern, we will fax note over to [facility]. #Cholelithiasis: Will reach out to [facility] as patient admits that the surgeon is awaiting a PCP clearance. At this time as long as patient's blood pressure is controlled and he continues to be compliant with his losartan 25 mg tablets daily, he is cleared for surgery. We are waiting on lab values, patient has not yet had a lab work completed through our office. #Anxiety/depression: Will be beginning patient on Lexapro 5 mg tablets daily. Patient admits that he feels as though he is more anxious around large groups of people which also inhibits him from focusing. Educated on different side effects of Lexapro that include but not limited to increased feelings of self-harm, increased feelings of anxiety/depression/l ow libido/headaches and insomnia. Will be following up with patient in 6 weeks to see how he is doing on the medication. #Fingernail trauma: Placing a referral to hand specialist as patient admits that back in November he was seen by urgent care as he did sliced his finger when he was cutting down a tree. At this time nailbed seems to be not intact, there is trauma around the nailbed, patient more than likely will benefit from nailbed debridement or removal. No signs and symptoms of concern for infection or paronychia. Obtaining CBC, if the white blood cell count is elevated consider adding antibiotics for prophylaxis. Physical Men Patient seen and examined. Comprehensive discussion was done on the following. 1. Nutrition: It is important to follow a healthy diet based on lots of vegetables and legumes and good fat. Avoid processed food and processed carbohydrates. Learn to prepare your own meals. Learn to read labels and avoid high fructose corn syrup, processed chemicals added to increase shelf life and preprepared meals. Avoid fast foods. Learn to eat slowly and plan meals for a week. Try to count calories and be mindful off daily calorie intake. Get into the habit of keeping an eye on your weight by using an appropriate scale. Learn to log exercise and discussed fitness Apps like [employer] which can help keep log off calories taken versus calories burned. Local food should be preferred. Discussed Dirty Dozen Versus Clean Fifteen. Discussed healthy supplements like fish oil, Tumeric, Curcumin, Melatonin, Resveratrol, Probiotics, Vitamin-D, Alpha-Lipoic acid, Vitamin-D and coconut oil. 2. It is important to exercise regularly. Is a good habit to walk at least 30-45 minutes a day. Gentle weightlifting with standard precautions to protect the back. Finding activity like cycling or hiking and get into the habit of engaging in it. Stretching before and after the exercises important. It is also important to contact me if there are any problems like shortness of breath, chest pain, back pain and joint or muscle pain associated with the exercise. 3. Discussed age appropriate screening guidelines. Colonoscopy needs to start at age 50 with stool for occult blood as appropriate. There is a new test that can test for genetic abnormalities in the stool sample. This would not replace a colonoscopy but could be used as a screening tool for patients who do not want a colonoscopy. We discussed the importance of early detection of colon cancer. 4. Discussed current PSA screening. PSA screening can be done in most patients between age 50 and 65. However early detection of prostate cancer needs to carefully be balanced with complications with treatment. These include incontinence, impotence etc. Each patient should decide if they would like to have this test. 5. Discussed safe driving and no use of smart phone while driving 6. Age-appropriate immunizations were discussed. A tetanus booster is needed every 10 years. Flu vaccine is recommended every year just before the start of the flu season. Shingles vaccine is recommended after age 50 but not all insurances cover it. Pneumonia vaccine is given after age 65 unless there are certain comorbidities for which it is started earlier. 7. Diagnostic labs were discussed. These could include CBC CMP and lipids with fasting blood glucose and insulin levels. Vitamin D and hemoglobin A1c testing might be appropriate. All questions have been answered to patient's satisfaction. Patient verbalized understanding of diagnosis and treatments explained. Advised to call sooner prior to next visit it any questions/concerns arise. Case discussed with Cynthia MARTÍNEZ who reviewed the assessment and plan. Chart, medications, labs, vital signs reviewed. Dictation was accomplished with the use of [employer] voice recognition software, which is prone to medical misidentifications and grammatical errors. This are unintentional and the practitioner does try to identify and correct these, but some could still be present. Please do not hesitate to contact practitioner for clarification. 01/28/2025 Hypertension, essential (ICD-10 - I10) Chuck is a pleasant 39-year-old male with a past medical history of hypertension, hearing loss, anxiety, depression who presents to the office today for an annual exam #Health maintenance: Tetanus vaccination given to patient in office, eye doctor referral placed today as patient states that he is having slight vision concerns, states that he does follow regularly with a dentist every 6 months, up-to-date on flu vaccination, no longer receives updated COVID vaccinations. PHQ-9 value is 5, more than likely contributory towards his trouble concentrating and increased feelings of anxiety. #Hypertension: Continue losartan potassium 25 mg tablets, patient fully educated to not discontinue taking this medication as it is imperative for adequate blood pressure management and control. #Abdominal pain: Patient constantly is stating that his right upper quadrant is bothersome, more than likely due to the cholelithiasis concern, we will fax note over to [facility]. #Cholelithiasis: Will reach out to [facility] as patient admits that the surgeon is awaiting a PCP clearance. At this time as long as patient's blood pressure is controlled and he continues to be compliant with his losartan 25 mg tablets daily, he is cleared for surgery. We are waiting on lab values, patient has not yet had a lab work completed through our office. #Anxiety/depression: Will be beginning patient on Lexapro 5 mg tablets daily. Patient admits that he feels as though he is more anxious around large groups of people which also inhibits him from focusing. Educated on different side effects of Lexapro that include but not limited to increased feelings of self-harm, increased feelings of anxiety/depression/l ow libido/headaches and insomnia. Will be following up with patient in 6 weeks to see how he is doing on the medication. #Fingernail trauma: Placing a referral to hand specialist as patient admits that back in November he was seen by urgent care as he did sliced his finger when he was cutting down a tree. At this time nailbed seems to be not intact, there is trauma around the nailbed, patient more than likely will benefit from nailbed debridement or removal. No signs and symptoms of concern for infection or paronychia. Obtaining CBC, if the white blood cell count is elevated consider adding antibiotics for prophylaxis. Physical Men Patient seen and examined. Comprehensive discussion was done on the following. 1. Nutrition: It is important to follow a healthy diet based on lots of vegetables and legumes and good fat. Avoid processed food and processed carbohydrates. Learn to prepare your own meals. Learn to read labels and avoid high fructose corn syrup, processed chemicals added to increase shelf life and preprepared meals. Avoid fast foods. Learn to eat slowly and plan meals for a week. Try to count calories and be mindful off daily calorie intake. Get into the habit of keeping an eye on your weight by using an appropriate scale. Learn to log exercise and discussed fitness Apps like [employer] which can help keep log off calories taken versus calories burned. Local food should be preferred. Discussed Dirty Dozen Vers[employer] Clean Fifteen. Discussed healthy supplements like fish oil, Tumeric, Curcumin, Melatonin, Resveratrol, Probiotics, Vitamin-D, Alpha-Lipoic acid, Vitamin-D and coconut oil. 2. It is important to exercise regularly. Is a good habit to walk at least 30-45 minutes a day. Gentle weightlifting with standard precautions to protect the back. Finding activity like cycling or hiking and get into the habit of engaging in it. Stretching before and after the exercises important. It is also important to contact me if there are any problems like shortness of breath, chest pain, back pain and joint or muscle pain associated with the exercise. 3. Discussed age appropriate screening guidelines. Colonoscopy needs to start at age 50 with stool for occult blood as appropriate. There is a new test that can test for genetic abnormalities in the stool sample. This would not replace a colonoscopy but could be used as a screening tool for patients who do not want a colonoscopy. We discussed the importance of early detection of colon cancer. 4. Discussed current PSA screening. PSA screening can be done in most patients between age 50 and 65. However early detection of prostate cancer needs to carefully be balanced with complications with treatment. These include incontinence, impotence etc. Each patient should decide if they would like to have this test. 5. Discussed safe driving and no use of smart phone while driving 6. Age-appropriate immunizations were discussed. A tetanus booster is needed every 10 years. Flu vaccine is recommended every year just before the start of the flu season. Shingles vaccine is recommended after age 50 but not all insurances cover it. Pneumonia vaccine is given after age 65 unless there are certain comorbidities for which it is started earlier. 7. Diagnostic labs were discussed. These could include CBC CMP and lipids with fasting blood glucose and insulin levels. Vitamin D and hemoglobin A1c testing might be appropriate. All questions have been answered to patient's satisfaction. Patient verbalized understanding of diagnosis and treatments explained. Advised to call sooner prior to next visit it any questions/concerns arise. Case discussed with Cynthia MARTÍNEZ who reviewed the assessment and plan. Chart, medications, labs, vital signs reviewed. Dictation was accomplished with the use of [employer] voice recognition software, which is prone to medical misidentifications and grammatical errors. This are unintentional and the practitioner does try to identify and correct these, but some could still be present. Please do not hesitate to contact practitioner for clarification. 01/28/2025 Reactive depression (ICD-10 - F32.9) Chuck is a pleasant 39-year-old male with a past medical history of hypertension, hearing loss, anxiety, depression who presents to the office today for an annual exam #Health maintenance: Tetanus vaccination given to patient in office, eye doctor referral placed today as patient states that he is having slight vision concerns, states that he does follow regularly with a dentist every 6 months, up-to-date on flu vaccination, no longer receives updated COVID vaccinations. PHQ-9 value is 5, more than likely contributory towards his trouble concentrating and increased feelings of anxiety. #Hypertension: Continue losartan potassium 25 mg tablets, patient fully educated to not discontinue taking this medication as it is imperative for adequate blood pressure management and control. #Abdominal pain: Patient constantly is stating that his right upper quadrant is bothersome, more than likely due to the cholelithiasis concern, we will fax note over to [facility]. #Cholelithiasis: Will reach out to [facility] as patient admits that the surgeon is awaiting a PCP clearance. At this time as long as patient's blood pressure is controlled and he continues to be compliant with his losartan 25 mg tablets daily, he is cleared for surgery. We are waiting on lab values, patient has not yet had a lab work completed through our office. #Anxiety/depression: Will be beginning patient on Lexapro 5 mg tablets daily. Patient admits that he feels as though he is more anxious around large groups of people which also inhibits him from focusing. Educated on different side effects of Lexapro that include but not limited to increased feelings of self-harm, increased feelings of anxiety/depression/l ow libido/headaches and insomnia. Will be following up with patient in 6 weeks to see how he is doing on the medication. #Fingernail trauma: Placing a referral to hand specialist as patient admits that back in November he was seen by urgent care as he did sliced his finger when he was cutting down a tree. At this time nailbed seems to be not intact, there is trauma around the nailbed, patient more than likely will benefit from nailbed debridement or removal. No signs and symptoms of concern for infection or paronychia. Obtaining CBC, if the white blood cell count is elevated consider adding antibiotics for prophylaxis. Physical Men Patient seen and examined. Comprehensive discussion was done on the following. 1. Nutrition: It is important to follow a healthy diet based on lots of vegetables and legumes and good fat. Avoid processed food and processed carbohydrates. Learn to prepare your own meals. Learn to read labels and avoid high fructose corn syrup, processed chemicals added to increase shelf life and preprepared meals. Avoid fast foods. Learn to eat slowly and plan meals for a week. Try to count calories and be mindful off daily calorie intake. Get into the habit of keeping an eye on your weight by using an appropriate scale. Learn to log exercise and discussed fitness Apps like [employer] which can help keep log off calories taken versus calories burned. Local food should be preferred. Discussed Dirty Dozen Versus Clean Fifteen. Discussed healthy supplements like fish oil, Tumeric, Curcumin, Melatonin, Resveratrol, Probiotics, Vitamin-D, Alpha-Lipoic acid, Vitamin-D and coconut oil. 2. It is important to exercise regularly. Is a good habit to walk at least 30-45 minutes a day. Gentle weightlifting with standard precautions to protect the back. Finding activity like cycling or hiking and get into the habit of engaging in it. Stretching before and after the exercises important. It is also important to contact me if there are any problems like shortness of breath, chest pain, back pain and joint or muscle pain associated with the exercise. 3. Discussed age appropriate screening guidelines. Colonoscopy needs to start at age 50 with stool for occult blood as appropriate. There is a new test that can test for genetic abnormalities in the stool sample. This would not replace a colonoscopy but could be used as a screening tool for patients who do not want a colonoscopy. We discussed the importance of early detection of colon cancer. 4. Discussed current PSA screening. PSA screening can be done in most patients between age 50 and 65. However early detection of prostate cancer needs to carefully be balanced with complications with treatment. These include incontinence, impotence etc. Each patient should decide if they would like to have this test. 5. Discussed safe driving and no use of smart phone while driving 6. Age-appropriate immunizations were discussed. A tetanus booster is needed every 10 years. Flu vaccine is recommended every year just before the start of the flu season. Shingles vaccine is recommended after age 50 but not all insurances cover it. Pneumonia vaccine is given after age 65 unless there are certain comorbidities for which it is started earlier. 7. Diagnostic labs were discussed. These could include CBC CMP and lipids with fasting blood glucose and insulin levels. Vitamin D and hemoglobin A1c testing might be appropriate. All questions have been answered to patient's satisfaction. Patient verbalized understanding of diagnosis and treatments explained. Advised to call sooner prior to next visit it any questions/concerns arise. Case discussed with Cynthia MARTÍNEZ who reviewed the assessment and plan. Chart, medications, labs, vital signs reviewed. Dictation was accomplished with the use of [employer] voice recognition software, which is prone to medical misidentifications and grammatical errors. This are unintentional and the practitioner does try to identify and correct these, but some could still be present. Please do not hesitate to contact practitioner for clarification. 01/28/2025 Difficulty concentrating (ICD-10 - R41.840) Chuck is a pleasant 39-year-old male with a past medical history of hypertension, hearing loss, anxiety, depression who presents to the office today for an annual exam #Health maintenance: Tetanus vaccination given to patient in office, eye doctor referral placed today as patient states that he is having slight vision concerns, states that he does follow regularly with a dentist every 6 months, up-to-date on flu vaccination, no longer receives updated COVID vaccinations. PHQ-9 value is 5, more than likely contributory towards his trouble concentrating and increased feelings of anxiety. #Hypertension: Continue losartan potassium 25 mg tablets, patient fully educated to not discontinue taking this medication as it is imperative for adequate blood pressure management and control. #Abdominal pain: Patient constantly is stating that his right upper quadrant is bothersome, more than likely due to the cholelithiasis concern, we will fax note over to [facility]. #Cholelithiasis: Will reach out to [facility] as patient admits that the surgeon is awaiting a PCP clearance. At this time as long as patient's blood pressure is controlled and he continues to be compliant with his losartan 25 mg tablets daily, he is cleared for surgery. We are waiting on lab values, patient has not yet had a lab work completed through our office. #Anxiety/depression: Will be beginning patient on Lexapro 5 mg tablets daily. Patient admits that he feels as though he is more anxious around large groups of people which also inhibits him from focusing. Educated on different side effects of Lexapro that include but not limited to increased feelings of self-harm, increased feelings of anxiety/depression/l ow libido/headaches and insomnia. Will be following up with patient in 6 weeks to see how he is doing on the medication. #Fingernail trauma: Placing a referral to hand specialist as patient admits that back in November he was seen by urgent care as he did sliced his finger when he was cutting down a tree. At this time nailbed seems to be not intact, there is trauma around the nailbed, patient more than likely will benefit from nailbed debridement or removal. No signs and symptoms of concern for infection or paronychia. Obtaining CBC, if the white blood cell count is elevated consider adding antibiotics for prophylaxis. Physical Men Patient seen and examined. Comprehensive discussion was done on the following. 1. Nutrition: It is important to follow a healthy diet based on lots of vegetables and legumes and good fat. Avoid processed food and processed carbohydrates. Learn to prepare your own meals. Learn to read labels and avoid high fructose corn syrup, processed chemicals added to increase shelf life and preprepared meals. Avoid fast foods. Learn to eat slowly and plan meals for a week. Try to count calories and be mindful off daily calorie intake. Get into the habit of keeping an eye on your weight by using an appropriate scale. Learn to log exercise and discussed fitness Apps like [employer] which can help keep log off calories taken versus calories burned. Local food should be preferred. Discussed Dirty Dozen Versus Clean Fifteen. Discussed healthy supplements like fish oil, Tumeric, Curcumin, Melatonin, Resveratrol, Probiotics, Vitamin-D, Alpha-Lipoic acid, Vitamin-D and coconut oil. 2. It is important to exercise regularly. Is a good habit to walk at least 30-45 minutes a day. Gentle weightlifting with standard precautions to protect the back. Finding activity like cycling or hiking and get into the habit of engaging in it. Stretching before and after the exercises important. It is also important to contact me if there are any problems like shortness of breath, chest pain, back pain and joint or muscle pain associated with the exercise. 3. Discussed age appropriate screening guidelines. Colonoscopy needs to start at age 50 with stool for occult blood as appropriate. There is a new test that can test for genetic abnormalities in the stool sample. This would not replace a colonoscopy but could be used as a screening tool for patients who do not want a colonoscopy. We discussed the importance of early detection of colon cancer. 4. Discussed current PSA screening. PSA screening can be done in most patients between age 50 and 65. However early detection of prostate cancer needs to carefully be balanced with complications with treatment. These include incontinence, impotence etc. Each patient should decide if they would like to have this test. 5. Discussed safe driving and no use of smart phone while driving 6. Age-appropriate immunizations were discussed. A tetanus booster is needed every 10 years. Flu vaccine is recommended every year just before the start of the flu season. Shingles vaccine is recommended after age 50 but not all insurances cover it. Pneumonia vaccine is given after age 65 unless there are certain comorbidities for which it is started earlier. 7. Diagnostic labs were discussed. These could include CBC CMP and lipids with fasting blood glucose and insulin levels. Vitamin D and hemoglobin A1c testing might be appropriate. All questions have been answered to patient's satisfaction. Patient verbalized understanding of diagnosis and treatments explained. Advised to call sooner prior to next visit it any questions/concerns arise. Case discussed with Cynthia MARTÍNEZ who reviewed the assessment and plan. Chart, medications, labs, vital signs reviewed. Dictation was accomplished with the use of [employer] voice recognition software, which is prone to medical misidentifications and grammatical errors. This are unintentional and the practitioner does try to identify and correct these, but some could still be present. Please do not hesitate to contact practitioner for clarification. 01/28/2025 Encounter for examination of blood pressure without abnormal findings (ICD-10 - Z01.30) Chuck is a pleasant 39-year-old male with a past medical history of hypertension, hearing loss, anxiety, depression who presents to the office today for an annual exam #Health maintenance: Tetanus vaccination given to patient in office, eye doctor referral placed today as patient states that he is having slight vision concerns, states that he does follow regularly with a dentist every 6 months, up-to-date on flu vaccination, no longer receives updated COVID vaccinations. PHQ-9 value is 5, more than likely contributory towards his trouble concentrating and increased feelings of anxiety. #Hypertension: Continue losartan potassium 25 mg tablets, patient fully educated to not discontinue taking this medication as it is imperative for adequate blood pressure management and control. #Abdominal pain: Patient constantly is stating that his right upper quadrant is bothersome, more than likely due to the cholelithiasis concern, we will fax note over to [facility]. #Cholelithiasis: Will reach out to [facility] as patient admits that the surgeon is awaiting a PCP clearance. At this time as long as patient's blood pressure is controlled and he continues to be compliant with his losartan 25 mg tablets daily, he is cleared for surgery. We are waiting on lab values, patient has not yet had a lab work completed through our office. #Anxiety/depression: Will be beginning patient on Lexapro 5 mg tablets daily. Patient admits that he feels as though he is more anxious around large groups of people which also inhibits him from focusing. Educated on different side effects of Lexapro that include but not limited to increased feelings of self-harm, increased feelings of anxiety/depression/l ow libido/headaches and insomnia. Will be following up with patient in 6 weeks to see how he is doing on the medication. #Fingernail trauma: Placing a referral to hand specialist as patient admits that back in November he was seen by urgent care as he did sliced his finger when he was cutting down a tree. At this time nailbed seems to be not intact, there is trauma around the nailbed, patient more than likely will benefit from nailbed debridement or removal. No signs and symptoms of concern for infection or paronychia. Obtaining CBC, if the white blood cell count is elevated consider adding antibiotics for prophylaxis. Physical Men Patient seen and examined. Comprehensive discussion was done on the following. 1. Nutrition: It is important to follow a healthy diet based on lots of vegetables and legumes and good fat. Avoid processed food and processed carbohydrates. Learn to prepare your own meals. Learn to read labels and avoid high fructose corn syrup, processed chemicals added to increase shelf life and preprepared meals. Avoid fast foods. Learn to eat slowly and plan meals for a week. Try to count calories and be mindful off daily calorie intake. Get into the habit of keeping an eye on your weight by using an appropriate scale. Learn to log exercise and discussed fitness Apps like [employer] which can help keep log off calories taken versus calories burned. Local food should be preferred. Discussed Dirty Dozen Versus Clean Fifteen. Discussed healthy supplements like fish oil, Tumeric, Curcumin, Melatonin, Resveratrol, Probiotics, Vitamin-D, Alpha-Lipoic acid, Vitamin-D and coconut oil. 2. It is important to exercise regularly. Is a good habit to walk at least 30-45 minutes a day. Gentle weightlifting with standard precautions to protect the back. Finding activity like cycling or hiking and get into the habit of engaging in it. Stretching before and after the exercises important. It is also important to contact me if there are any problems like shortness of breath, chest pain, back pain and joint or muscle pain associated with the exercise. 3. Discussed age appropriate screening guidelines. Colonoscopy needs to start at age 50 with stool for occult blood as appropriate. There is a new test that can test for genetic abnormalities in the stool sample. This would not replace a colonoscopy but could be used as a screening tool for patients who do not want a colonoscopy. We discussed the importance of early detection of colon cancer. 4. Discussed current PSA screening. PSA screening can be done in most patients between age 50 and 65. However early detection of prostate cancer needs to carefully be balanced with complications with treatment. These include incontinence, impotence etc. Each patient should decide if they would like to have this test. 5. Discussed safe driving and no use of smart phone while driving 6. Age-appropriate immunizations were discussed. A tetanus booster is needed every 10 years. Flu vaccine is recommended every year just before the start of the flu season. Shingles vaccine is recommended after age 50 but not all insurances cover it. Pneumonia vaccine is given after age 65 unless there are certain comorbidities for which it is started earlier. 7. Diagnostic labs were discussed. These could include CBC CMP and lipids with fasting blood glucose and insulin levels. Vitamin D and hemoglobin A1c testing might be appropriate. All questions have been answered to patient's satisfaction. Patient verbalized understanding of diagnosis and treatments explained. Advised to call sooner prior to next visit it any questions/concerns arise. Case discussed with Cynthia MARTÍNEZ who reviewed the assessment and plan. Chart, medications, labs, vital signs reviewed. Dictation was accomplished with the use of [employer] voice recognition software, which is prone to medical misidentifications and grammatical errors. This are unintentional and the practitioner does try to identify and correct these, but some could still be present. Please do not hesitate to contact practitioner for clarification. Plan Of Treatment Medication Medication Name Sig Start Date Stop Date Notes Lexapro 5 MG 1 tablet Orally Once a day; Duration: 30 days 01/28/2025 Losartan Potassium 25 MG 1 tablet Orally Once a day; Duration: 90 days 08/17/2024 Pending Test Test Name Order Date LIPID PANEL, STANDARD 01/28/2025 COMPREHENSIVE METABOLIC PANEL 01/28/2025 CBC (INCLUDES DIFF/PLT) 01/28/2025 URINALYSIS, COMPLETE 01/28/2025 HEMOGLOBIN A1c 01/28/2025 VITAMIN B12 01/28/2025 VITAMIN D,25-OH,TOTAL,IA 01/28/2025 TSH+T4F+T3Free 01/28/2025 Referrals Referral Date Details 01/28/2025 01/28/2025, Evaluate & Treat 01/28/2025 01/28/2025, Evaluate & Treat Next Appt Details Provider Name:MEGHAN ADAMES, 09:15:00 AM, [address] [facility], [place], [id number], Progress Notes * Siva EDDYDOB:1985 (39 yo M)Acc No.[id number]:01/28/2025 CPE Patient: Siva SIMENTAL Provider: Robert ADAMES PA-C :1985 A ge:39 Y S ex:Male Date:01/28/2025 Address:[address] [place] [address], [facility] Subjective: * Chief Complaints: * 1 . Patient is here for His Annual Physical Exams. Labs have not been completed for this visit. No medical history has changed. * HPI: C onstitutional: Siva is a 39-year-old male with a past medical history of anxiety, hypertension, depression, hearing loss of right ear who presents to the office today for his annual physical exam. Patient has not yet had lab work completed, states that he was in between insurance carriers therefore this was prohibiting him from obtaining insurance coverage from his lab orders that were ordered... At new patient visit patient states that he was noted to have gallstones at a previous ER visit. Patient was seen at [facility] post ER visit for upper abdominal/right upper quadrant pain. Patient's ultrasound demonstrated cholelithiasis... Patient was given surgery options, has not yet proceeded. Patient admits that the surgeon would like adequate blood pressure control before he proceeds with surgery. That new patient visit patient was noted to have elevated blood pressure readings he was started on losartan, however he states that he has not taken the medication in around 2 months. The plan will be to restart patient on losartan 25 mg tablets daily for adequate blood pressure control. Additionally patient noted to have anxiety/depression lately, he states that he does have increased feelings of anxiety when he is around large groups of people. He admits that he is interested in a daily medication at this time. States that he had has had trouble focusing, states that this also could be contributing towards his anxiety as well Additionally patient admits that he recently injured his index finger on his right hand in November and it has been consistently bothering him. States that he was seen by urgent care and had sutures Dentist: 6 months Eye Doctor: Does not have one , will place referral Flu: 2024 COVID: 2 TDAP: Today PHQ-9: 5. * ROS: C onstitutional: Patient denies any excessive fatigue with exercise, no weight loss, no fever and no night sweats Eyes: No eye discharge, no itching, no redness. Advised the significance of regular eye exams to screen for glaucoma and other eye problems Ear nose throat: No sore throat, postnasal drip, runny nose, Sneezing Cardiovascular: No chest pain, no shortness of breath, no dyspnea on exertion, no PND, no orthopnea, no irregular pulse Respiratory: No chronic cough, no hemoptysis, no sputum, no wheezing GI, no diarrhea, no constipation no blood in the stools, no pain associated with eating, no indigestion Genitourinary: No painful urination no hesitancy no blood in the urine Musculoskeletal,+ fingernail concern no limitations to walking and running, no joint deformity, no joint stiffness, no chronic back pain, no noise with joint movement Integumentary, no new skin rash. No new changes in skin moles Neurological: No history of seizures, memory loss, No language dysfunction, No inability to concentrate, no localized weakness, no sensation loss, no confusion Psychiatric: No depression, no suicidal thoughts, no anxiety Endocrine: No polyuria no polyphagia or polydipsia, no heat intolerance no cold intolerance Hematological: No easy bruising or Lymph node swelling. * Medical History: H ypertension, essential, Anxiety, Depression, Hearing loss of right ear, unspecified hearing loss type. * Surgical History: D enies Past Surgical History. * Hospitalization/Major Diagno stic Procedure: D enies Past Hospitalization. * Family History: F ather: alive. M other: alive. 2 brother(s) , 2 sister(s) . . fx of diabetes both parents are diabetics two children: 12 and 9 Does not talk to siblings. * Social History: ( AWV) No Social History documented Vape daily ETOH: None No other drug use Work: Drive, [employer]. * Medications: T aking Losartan Potassium 25 MG Tablet 1 tablet Orally Once a day , Medication List reviewed and reconciled with the patient * Allergies: N .K.D.A. Objective: * Vitals: H R:71/min, BP:142/92mm Hg, Wt:219.0lbs, BMI:32.34Index, Ht: 69 in, Oxygen sat %:96%. * Physical Examination: G eneral: Patient is age appropriate, well appearing, no acute distress, speaking in full sentences without respiratory compromise. Well groomed, well developed. Skin: Warm, dry and intact. No lesions/rashes. + Right hand with index fingernail trauma, erythema and tenderness upon palpation HEENT: Normocephalic/atraumatic. EOMI intact. PERRLA. Vision intact. No ptosis or lid lag. Nares without discharge or inflammation. Oral cavity free of plaques or exudates. Dentition well maintained. No pharyngeal erythema. Ears are clear bilaterally, TM are clear of air fluid levels or bulging. Neck: Supple, with no lymphadenopathy. Lung: Clear to auscultation bilaterally, no wheezes, rales or rhonchi. No barrel chest. Cardiac: S1 and S2 appreciated. No murmurs/rubs or gallops. DP pulses intact 2+ bilaterally. Abdomen: Soft, , normoactive bowel sounds. No rebound/guarding. + Right upper quadrant tenderness Extremities: Bilateral lower extremities with no edema or rubor. No evidence of varicose veins. MSK: Bilateral upper and lower extremities 5/5 strength with flexion/extension. Foundation Assistant strength 5/5. Neuro: Steady gait with ambulation observed. Psych: Stable mood and affect. Assessment: * Assessment: 1. A dult general medical exam - Z00.00 (Primary) 2 . G all stones - K80.20? 3. A nxiety - F41.9 4 . H earing loss of right ear, unspecified hearing loss type - H91.91 5 . H ypertension, essential - I10 6. R eactive depression - F32.9 7 . D ifficulty concentrating - R41.840? 8. E ncounter for examination of blood pressure without abnormal findings - Z01.30 Chuck is a pleasant 39-yea r-old male with a past medical history of hypertension, hearing loss, anxiety, depression who presents to the office today for an annual exam #Health maintenance: Tetanus vaccination given to patient in office, eye doctor referral placed today as patient states that he is having slight vision concerns, states that he does follow regularly with a dentist every 6 months, up-to-date on flu vaccination, no longer receives updated COVID vaccinations. PHQ-9 value is 5, more than likely contributory towards his trouble concentrating and increased feelings of anxiety. #Hypertension: Continue losartan potassium 25 mg tablets, patient fully educated to not discontinue taking this medication as it is imperative for adequate blood pressure management and control. #Abdominal pain: Patient constantly is stating that his right upper quadrant is bothersome, more than likely due to the cholelithiasis concern, we will fax note over to [facility]. #Cholelithiasis: Will reach out to [facility] as patient admits that the surgeon is awaiting a PCP clearance. At this time as long as patient's blood pressure is controlled and he continues to be compliant with his losartan 25 mg tablets daily, he is cleared for surgery. We are waiting on lab values, patient has not yet had a lab work completed through our office. #Anxiety/depression: Will be beginning patient on Lexapro 5 mg tablets daily. Patient admits that he feels as though he is more anxious around large groups of people which also inhibits him from focusing. Educated on different side effects of Lexapro that include but not limited to increased feelings of self-harm, increased feelings of anxiety/depression/low libido/headaches and insomnia. Will be following up with patient in 6 weeks to see how he is doing on the medication. #Fingernail trauma: Placing a referral to hand specialist as patient admits that back in November he was seen by urgent care as he did sliced his finger when he was cutting down a tree. At this time nailbed seems to be not intact, there is trauma around the nailbed, patient more than likely will benefit from nailbed debridement or removal. No signs and symptoms of concern for infection or paronychia. Obtaining CBC, if the white blood cell count is elevated consider adding antibiotics for prophylaxis. Physical Men Patient seen and examined. Comprehensive discussion was done on the following. 1. Nutrition: It is important to follow a healthy diet based on lots of vegetables and legumes and good fat. Avoid processed food and processed carbohydrates. Learn to prepare your own meals. Learn to read labels and avoid high fructose corn syrup, processed chemicals added to increase shelf life and preprepared meals. Avoid fast foods. Learn to eat slowly and plan meals for a week. Try to count calories and be mindful off daily calorie intake. Get into the habit of keeping an eye on your weight by using an appropriate scale. Learn to log exercise and discussed fitness Apps like [employer] which can help keep log off calories taken versus calories burned. Local food should be preferred. Discussed Dirty Dozen Versus Clean Fifteen. Discussed healthy supplements like fish oil, Tumeric, Curcumin, Melatonin, Resveratrol, Probiotics, Vitamin-D, Alpha-Lipoic acid, Vitamin-D and coconut oil. 2. It is important to exercise regularly. Is a good habit to walk at least 30-45 minutes a day. Gentle weightlifting with standard precautions to protect the back. Finding activity like cycling or hiking and get into the habit of engaging in it. Stretching before and after the exercises important. It is also important to contact me if there are any problems like shortness of breath, chest pain, back pain and joint or muscle pain associated with the exercise. 3. Discussed age appropriate screening guidelines. Colonoscopy needs to start at age 50 with stool for occult blood as appropriate. There is a new test that can test for genetic abnormalities in the stool sample. This would not replace a colonoscopy but could be used as a screening tool for patients who do not want a colonoscopy. We discussed the importance of early detection of colon cancer. 4. Discussed current PSA screening. PSA screening can be done in most patients between age 50 and 65. However early detection of prostate cancer needs to carefully be balanced with complications with treatment. These include incontinence, impotence etc. Each patient should decide if they would like to have this test. 5. Discussed safe driving and no use of smart phone while driving 6. Age-appropriate immunizations were discussed. A tetanus booster is needed every 10 years. Flu vaccine is recommended every year just before the start of the flu season. Shingles vaccine is recommended after age 50 but not all insurances cover it. Pneumonia vaccine is given after age 65 unless there are certain comorbidities for which it is started earlier. 7. Diagnostic labs were discussed. These could include CBC CMP and lipids with fasting blood glucose and insulin levels. Vitamin D and hemoglobin A1c testing might be appropriate. All questions have been answered to patient's satisfaction. Patient verbalized understanding of diagnosis and treatments explained. Advised to call sooner prior to next visit it any questions/concerns arise. Case discussed with Cynthia MARTÍNEZ who reviewed the assessment and plan. Chart, medications, labs, vital signs reviewed. Dictation was accomplished with the use of [employer] voice recognition software, which is prone to medical misidentifications and grammatical errors. This are unintentional and the practitioner does try to identify and correct these, but some could still be present. Please do not hesitate to contact practitioner for clarification. Plan: * Treatment: 2. G all stones Start Lexapro Tablet, 5 MG, 1 tablet, Orally, Once a day, 30 days, 30 Tablet, Refills 1; R efill Losartan Potassium Tablet, 25 MG, 1 tablet, Orally, Once a day, 90 days, 90 Tablet, Refills 1.? 3. O thers Referral To:Ophthalmology Reason:Evaluate & Treat Referral To:Hand Surgery Reason:Evaluate & Treat * Immunizations: Tdap : 0.5 mL (Dose No:1) (Route: Intramuscular) given by LANDY SAMS on Left Deltoid * Labs: * L ab: HEMOGLOBIN A1c L ab: VITAMIN D,25-OH,TOTAL,IA L ab: TSH+T4F+T3Free L ab: VITAMIN B12 L ab: LIPID PANEL, STANDARD * Procedure Codes: 3 077F SYST BP = 140 MM HG6 IT, 3080F DIAST BP = 90 MM HG, 87536 TDAP VACCINE >7 IM, 56216 IMMUNIZATION ADMIN, Modifiers: SA * Images: Billing Information: * Visit Code: 71293 Preventive Care Est Pt. Age 18-39. Modifiers: SA * Procedure Codes: 3077F SYST BP = 140 MM HG6 IT. 3080F DIAST BP = 90 MM HG. 31634 TDAP VACCINE >7 IM. 45662 IMMUNIZATION ADMIN. Modifiers: SA Care Plan Details* * Sign off status: Completed true * Provider: Robert ADAMES PA-C Date: 01/28/2025 Generated for Alba underwood/Vahe/Neemaitting on: 01/28/2025 05:35 PM EDT History and Physical Notes * Physical Examination Category Sub-Category Detail Notes Section Note s General: Patient is age appropriate, well appearing, no acute distress, speaking in full sentences without respiratory compromise. Well groomed, well developed. Skin: Warm, dry and intact. No lesions/rashes. + Right hand with index fingernail trauma, erythema and tenderness upon palpation HEENT: Normocephalic/atraumatic. EOMI intact. PERRLA. Vision intact. No ptosis or lid lag. Nares without discharge or inflammation. Oral cavity free of plaques or exudates. Dentition well maintained. No pharyngeal erythema. Ears are clear bilaterally, TM are clear of air fluid levels or bulging. Neck: Supple, with no lymphadenopathy. Lung: Clear to auscultation bilaterally, no wheezes, rales or rhonchi. No barrel chest. Cardiac: S1 and S2 appreciated. No murmurs/rubs or gallops. DP pulses intact 2+ bilaterally. Abdomen: Soft, , normoactive bowel sounds. No rebound/guarding. + Right upper quadrant tenderness Extremities: Bilateral lower extremities with no edema or rubor. No evidence of varicose veins. MSK: Bilateral upper and lower extremities 5/5 strength with flexion/extension. Foundation Assistant strength 5/5. Neuro: Steady gait with ambulation observed. Psych: Stable mood and affect Consultation Request Notes Referral Date Referring Provider Referred Provider Not es 01/28/2025 MEGHAN ADAMES , Evaluate & Marisel t 01/28/2025 MEGHAN ADAMES , Ayush & Marisel t
--- OUTSIDE RECORDS SUMMARY | 2025-01-28 17:36 | XMS_ITS | Patient Health Record ---
Author Organization [facility] Address [address] [place] [address] Care Team Providers Care Enterprise Account Manager Name Role Phone MEGHAN ADAMES Unavailable [phone] Allergies No Known Allergies Reason For Referral Reason evaluate & treat Diagnosis 1 Gall stones (K80.20) Referral Organization [facility] Referring Provider First Name MEGHAN Referring Provider Last Name ROSANGELA Referring Provider Speciality Internal edicine Referred Provider Specialty General Surg dione Clinical Notes Deepali Varela 05/2024 09:35:22 AM > faxed pt info to [facility]. p) [phone] f) [phone], Paramjit Mcnulty 09/13/2024 02:13:08 PM > Spoke with [facility] on October 07. Referral Priority Routine Reason Evaluate & Treat Diagnosis 1 Vision changes (H53. 9) Referral Organization [facility] Referring Provider First Name MEGHAN Referring Provider Last Name ROSANGELA Referring Provider Speciality Internal edicine Referred Provider Specialty Ophthalmolog y General Notes Elisabeth Michaels 2024 10:12:56 AM > dr quach, [phone], [phone] Referral Priority Routine Reason Evaluate & Treat Diagnosis 1 Contusion of unspeci fied finger with damage to nail, initial encounter (S60.10XA) Referral Organization [facility] Referring Provider First Name MEGHAN Referring Provider Last Name ROSANGELA Referring Provider Speciality Internal edicine Referred Provider Specialty Hand Surgery General Notes Elisabeth Michaels 2024 10:13:48 AM > hand specialist Referral Priority Routine Medications Medication SIG (Take, Route, Frequency, Duration) [...] Problem Status W/U Status Risk Notes Problem Vitamin D deficiency (91711758) Vitamin D deficiency, unspecified (E55.9) Active confirmed Problem Lipid screening (547808928) Encounter for screening for lipoid disorders (Z13.220) Active confirmed Problem Anxiety (59519901) Anxiety (F41.9) Active confirmed Problem Adult health examination (729602842) Adult general medical exam (Z00.00) Active confirmed Problem Gallstone (353468260) Gall stones (K80.20) Active confirmed Problem Vitamin D deficiency (36825150) Vitamin D deficiency (E55.9) Active confirmed Problem Diabetes mellitus screening (976095375) Diabetes mellitus screening (Z13.1) Active confirmed Problem Reactive depression (67328826) Reactive depression (F32.9) Active confirmed Problem Vitamin B>12< deficiency anaemia (07903122) Anemia due to vitamin B12 deficiency, 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) Active confirmed Problem Endocrine/[place] lic screening (962310560) Encounter for screening for endocrine disorder (Z13.29) Active confirmed Problem Hearing loss (24016662) Hearing loss of right ear, unspecified hearing loss type (H91.91) Active confirmed Problem Unable to concentrate (finding) (61730398) Difficulty concentrating (R41.840) Active confirmed Problem Essential hypertension (30295459) Hypertension, essential (I10) Active confirmed Vital Signs Heart Rate 71 /min 01/28/2025 Blood pressure diastolic 92 mm Hg 01/28/2025 Oximetry 96 % 01/28/2025 Height 69 in 01/28/2025 Blood pressure systolic 142 mm Hg 01/28/2025 Weight 219.0 lbs 01/28/2025 BMI 32.34 kg/m2 01/28/2025 Encounters Encounter Location Date Provider Diagnosis [facility] [address] [place] [address] 08/17/2024 MEGHAN ROSANGELA Gall stones K80.20 ; Anxiety F41.9 ; Hearing loss of right ear, unspecified hearing loss type H91.91 and Hypertension, essential I10 [facility] [address] [place] [address] 01/28/2025 MEGHAN ROSANGELA Gall stones K80.20 ; Adult general medical exam Z00.00 ; Anxiety F41.9 ; Hearing loss of right ear, unspecified hearing loss type H91.91 ; Hypertension, essential I10 ; Reactive depression F32.9 ; Difficulty concentrating R41.840 and Encounter for examination of blood pressure without abnormal findings Z01.30 [facility] [address] [address] 08/17/2024 MEGHAN ROSANGELA [facility] [address] [facility] [address] [address] 12/24/2024 MEGHAN ROSANGELA [facility] [address] [place] [address] 09/20/2024 MEGHAN ROSANGELA [facility] [address] [place] [address] 09/20/2024 MEGHAN ROSANGELA [facility] [address] [place] [address] 12/13/2024 MEGHAN ROSANGELA [facility] [address] [place] [address] 12/13/2024 MEGHAN ROSANGELA Assessments Encounter Date Diagnosis (ICD Code) Assessment Notes Treatment Notes Treatment Clinical Notes Section Notes 08/17/2024 Anxiety (ICD-10 - F41.9) Chuck is a pleasant 38-year-old male who presents to the office today for new patient evaluation. Patient is welcomed to the practice. Medications, medical history, allergies, surgeries, hospitalizations, family history, and social history were reviewed. Problem list updated. Cardiopulmonary and abdominal exam unremarkable. Patient will follow-up in office. All patient questions answered at this time. #Hypertension: At this time patient's blood pressure in office is 138/90 and right arm. Repeat blood pressure is 140/90, therefore losartan 25 mg will be started due to patient's history, migraine headaches associated with fluctuation of blood pressure readings. He is to record his blood pressure at least 2 times weekly until his physical exam and bring the readings in. Consider medication adjustments at this time. #Gallstones: Patient was noted to have gallstones at his ER visit in [facility] around 2 weeks ago. Having patient sign record release to obtain more information. Referring patient to [facility] general surgery for further evaluation as he feels as though he would like to go there. All questions have been answered to patient's satisfaction. Patient verbalized understanding of diagnosis and treatments explained. Advised to call sooner prior to next visit it any questions/concerns arise. Case discussed with Cynthia MARTÍNEZ who reviewed the assessment and plan. Chart, medications, labs, vital signs reviewed. Dictation was accomplished with the use of [employer] voice recognition software, which is prone to medical misidentifications and grammatical errors. This are unintentional and the practitioner does try to identify and correct these, but some could still be present. Please do not hesitate to contact practitioner for clarification. 08/17/2024 Gall stones (ICD-10 - K80.20) Chuck is a pleasant 38-year-old male who presents to the office today for new patient evaluation. Patient is welcomed to the practice. Medications, medical history, allergies, surgeries, hospitalizations, family history, and social history were reviewed. Problem list updated. Cardiopulmonary and abdominal exam unremarkable. Patient will follow-up in office. All patient questions answered at this time. #Hypertension: At this time patient's blood pressure in office is 138/90 and right arm. Repeat blood pressure is 140/90, therefore losartan 25 mg will be started due to patient's history, migraine headaches associated with fluctuation of blood pressure readings. He is to record his blood pressure at least 2 times weekly until his physical exam and bring the readings in. Consider medication adjustments at this time. #Gallstones: Patient was noted to have gallstones at his ER visit in [facility] around 2 weeks ago. Having patient sign record release to obtain more information. Referring patient to [facility] general surgery for further evaluation as he feels as though he would like to go there. All questions have been answered to patient's satisfaction. Patient verbalized understanding of diagnosis and treatments explained. Advised to call sooner prior to next visit it any questions/concerns arise. Case discussed with Cynthia MARTÍNEZ who reviewed the assessment and plan. Chart, medications, labs, vital signs reviewed. Dictation was accomplished with the use of [employer] voice recognition software, which is prone to [...] concern, we will fax note over to [facility]. #Cholelithiasis: Will reach out to [facility] as patient admits that the surgeon is [...] log exercise and discussed fitness Apps like Kalion which can help keep log off calories [...] Dictation was accomplished with the use of [employer] voice recognition software, which is prone to medical misidentifications and grammatical errors. This are unintentional and the practitioner does try to identify and correct these, but some could still be present. Please do not hesitate to contact practitioner for clarification. 01/28/2025 Gall stones (ICD-10 - K80.20) Chuck [...] concern, we will fax note over to [facility]. #Cholelithiasis: Will reach out to [facility] as patient admits that the surgeon is [...] log exercise and discussed fitness Apps like [employer] which can help keep log off calories [...] Dictation was accomplished with the use of [employer] voice recognition software, which is prone to medical misidentifications and grammatical errors. This are unintentional and the practitioner does try to identify and correct these, but some could still be present. Please do not hesitate to contact practitioner for clarification. 08/17/2024 Hearing loss of right ear, unspecified hearing loss type (ICD-10 - H91.91) Chuck is a pleasant 38-year-old male who presents to the office today for new patient evaluation. Patient is welcomed to the practice. Medications, medical history, allergies, surgeries, hospitalizations, family history, and social history were reviewed. Problem list updated. Cardiopulmonary and abdominal exam unremarkable. Patient will follow-up in office. All patient questions answered at this time. #Hypertension: At this time patient's blood pressure in office is 138/90 and right arm. Repeat blood pressure is 140/90, therefore losartan 25 mg will be started due to patient's history, migraine headaches associated with fluctuation of blood pressure readings. He is to record his blood pressure at least 2 times weekly until his physical exam and bring the readings in. Consider medication adjustments at this time. #Gallstones: Patient was noted to have gallstones at his ER visit in [facility] around 2 weeks ago. Having patient sign record release to obtain more information. Referring patient to [facility] general surgery for further evaluation as he feels as though he would like to go there. All questions have been answered to patient's satisfaction. Patient verbalized understanding of diagnosis and treatments explained. Advised to call sooner prior to next visit it any questions/concerns arise. Case discussed with Cynthia MARTÍNEZ who reviewed the assessment and plan. Chart, medications, labs, vital signs reviewed. Dictation was accomplished with the use of [employer] voice recognition software, which is prone to [...] concern, we will fax note over to [facility]. #Cholelithiasis: Will reach out to [facility] as patient admits that the surgeon is [...] log exercise and discussed fitness Apps like [employer] which can help keep log off calories [...] Dictation was accomplished with the use of [employer] voice recognition software, which is prone to medical misidentifications and grammatical errors. This are unintentional and the practitioner does try to identify and correct these, but some could still be present. Please do not hesitate to contact practitioner for clarification. 08/17/2024 Hypertension, essential (ICD-10 - I10) Chuck is a pleasant 38-year-old male who presents to the office today for new patient evaluation. Patient is welcomed to the practice. Medications, medical history, allergies, surgeries, hospitalizations, family history, and social history were reviewed. Problem list updated. Cardiopulmonary and abdominal exam unremarkable. Patient will follow-up in office. All patient questions answered at this time. #Hypertension: At this time patient's blood pressure in office is 138/90 and right arm. Repeat blood pressure is 140/90, therefore losartan 25 mg will be started due to patient's history, migraine headaches associated with fluctuation of blood pressure readings. He is to record his blood pressure at least 2 times weekly until his physical exam and bring the readings in. Consider medication adjustments at this time. #Gallstones: Patient was noted to have gallstones at his ER visit in [facility] around 2 weeks ago. Having patient sign record release to obtain more information. Referring patient to [facility] general surgery for further evaluation as he feels as though he would like to go there. All questions have been answered to patient's satisfaction. Patient verbalized understanding of diagnosis and treatments explained. Advised to call sooner prior to next visit it any questions/concerns arise. Case discussed with Cynthia MARTÍNEZ who reviewed the assessment and plan. Chart, medications, labs, vital signs reviewed. Dictation was accomplished with the use of [employer] voice recognition software, which is prone to [...] concern, we will fax note over to [facility]. #Cholelithiasis: Will reach out to [facility] as patient admits that the surgeon is [...] log exercise and discussed fitness Apps like Kalion which can help keep log off calories [...] Dictation was accomplished with the use of [employer] voice recognition software, which is prone to [...] concern, we will fax note over to [facility]. #Cholelithiasis: Will reach out to [facility] as patient admits that the surgeon is [...] log exercise and discussed fitness Apps like Kalion which can help keep log off calories [...] Dictation was accomplished with the use of [employer] voice recognition software, which is prone to [...] concern, we will fax note over to [facility]. #Cholelithiasis: Will reach out to [facility] as patient admits that the surgeon is [...] log exercise and discussed fitness Apps like [employer] which can help keep log off calories [...] Dictation was accomplished with the use of [employer] voice recognition software, which is prone to [...] concern, we will fax note over to [facility]. #Cholelithiasis: Will reach out to [facility] as patient admits that the surgeon is [...] log exercise and discussed fitness Apps like Kalion which can help keep log off calories [...] Dictation was accomplished with the use of [employer] voice recognition software, which is prone to [...] concern, we will fax note over to [facility]. #Cholelithiasis: Will reach out to [facility] as patient admits that the surgeon is [...] log exercise and discussed fitness Apps like [employer] which can help keep log off calories [...] Dictation was accomplished with the use of [employer] voice recognition software, which is prone to medical misidentifications and grammatical errors. This are unintentional and the practitioner does try to identify and correct these, but some could still be present. Please do not hesitate to contact practitioner for clarification. Plan Of Treatment Pending Test Test Name Order Date LIPID PANEL, STANDARD 08/17/2024 LIPID PANEL, STANDARD 01/28/2025 COMPREHENSIVE METABOLIC PANEL 01/28/2025 COMPREHENSIVE METABOLIC PANEL 08/17/2024 BASIC METABOLIC PANEL 08/17/2024 CBC (INCLUDES DIFF/PLT) 08/17/2024 CBC (INCLUDES DIFF/PLT) 01/28/2025 URINALYSIS, COMPLETE 01/28/2025 HEMOGLOBIN A1c 01/28/2025 VITAMIN B12 08/17/2024 VITAMIN B12 01/28/2025 VITAMIN D,25-OH,TOTAL,IA 01/28/2025 VITAMIN D,25-OH,TOTAL,IA 08/17/2024 Hemoglobin [id number] 08/17/2024 TSH+T4F+T3Free 01/28/2025 TSH+T3+Free T4+T3 Free 08/17/2024 Next Appt Details Provider Name:MEGHAN ADAMES, 09:15:00 AM, [address], [place], [address], Insurance Providers Payer Name Payer Address Payer Phone Subscriber Number Group Number Insured Name Patient Relationship to Insured Coverage Start Date Coverage End Date [employer] [address] [address] [place] [address] [id number] Siva Arana Self - patient is the insured [employer] [address] [address] [place] [address] [phone] [id number] Siva Arana Self - patient is the insured Medical (General) History Medical History History ICD Code Hypertension, essential I10 Anxiety F41.9 Depression F32.A Hearing loss of right ear, unspecified h earing loss type H91.91
--- OUTSIDE RECORDS SUMMARY | 2025-01-28 17:36 | XMS_ITS | Clinical Summary ---
Author Organization [facility] Address [address] [place] [address] Care Team Providers Care Lamp Developer Name Role Phone Melina Cox MD Primary [...] (2 - Td or Tdap) 07/12/2018 07/12/2008 Depression Screening 05/19/2024 COVID-19 Vaccine (1 - 2023-2 5 season) 2025 Influenza Vaccine (#1) 2025 HIB Vaccines Aged [...] 5 Years) and At-Risk Patients (6 to 49 Years) Aged Out No longer eligi ble based on patient's age to complete this topic RSV Immunization Patients Un josh 20 months Aged Out No longer eligible b ased on patient's age to complete this topic Varicella Vaccines Aged Out No longer eligible based on patient's age to complete this topic Care Teams Lamp Developer Relationship Specialty Start Date End Date Melina Cox MD PCP - General Internal Medicine 12/30/18
--- OUTSIDE RECORDS SUMMARY | 2025-01-28 17:36 | XMS_ITS | Clinical Summary ---
Author Organization [facility] Address [address] [place] [address] Care Team Providers Care Personal Banking Assistant Name Role Phone Unavailable Primary Care Provider [...] of 3 - 19+ 3-dose series) 11/29/2006 HPV Vaccines (1 - 3-dose SCD M series) 11/29/2014 Influenza Vaccine 12/17/2024 01/31/2020 COVID-19 Vaccine ( - 2023-2 5 season) 2025 Pneumococcal Vaccine: Pediat melissa (0-5 Years) and At-Risk Patients (6 to 49 Years) Aged Out No longer eligible b ased on patient's age to complete this [place] [id number]
[2025-02-03] VITALS (9 sets, daily range): BP systolic 131–163; BP diastolic 77–106; PULSE 69–89; RESP 9–17; TEMP 36.4–37.1; O2SAT 95–97; BMI 31.7; BMI 31.5
[2025-02-03] MEDS: Lactated Ringers 1,000 ML 100 ML IVCONT (06:20)
--- NOTE | 2025-02-03 07:09 | HO.ANESPROP2 ---
Documented by User: Jennifer Francisco NP 02/01/25 14:03 HPI - Anesthesia Eval Consult details Narrative: 39yo M for Cholecystectomy Laparoscopic,possible open PMFSH Active Problems Active Problems: All Active Problems Hypertension (Acute) Recurrent biliary colic (Acute) Past Medical History Medical History (Updated 11/16/24 @ 15:16 by Mushtaq Rosario MD) Hypertension Surgical History Surgical History (Updated 02/03/25 @ 06:10 by Saira Arizmendi RN) Hx laparoscopic cholecystectomy Social History Social History Patient Tobacco Use Status: Never used Tobacco Have you been hit, kicked, punched, or otherwise hurt by someone within the past year? If so, by whom?: No Are you DNR?: No Advance Directives: No Advance Directives Information Provided: Yes Meds Allergies Allergy/AdvReac Type Severity Reaction Status Date / Time No Known Allergies Allergy Verified 11/16/24 14:00 Active Medications: Current Medications Lactated Ringer's (Lr) 1,000 mls @ 100 mls/hr IVCONT .Q10H JASON Home Medications ?Medication ?Instructions ?Recorded ?Confirmed ?Last Taken ?Type losartan 25 mg tablet 25 mg PO DAILY 08/19/24 02/03/25 02/02/25 History Exam Pertinent Lab Results Pertinent Lab Results: Laboratory Tests 07/26/24 11:44 WBC 9.2 Hgb 15.4 Hct 44.6 Plt Count 303 Sodium 138 Potassium 4.5 Chloride 108 Carbon Dioxide 24 BUN 10 Creatinine 0.82 Narrative Narrative: EKG 07/2024 Vent. Rate : 62 BPM Atrial Rate : 62 BPM P-R Int : 164 ms QRS Dur : 82 ms QT Int : 406 ms P-R-T Axes : -5 1 0 degrees QTcB Int : 412 ms Normal sinus rhythm Minimal voltage criteria for LVH, may be normal variant ( R in aVL ) Borderline ECG No previous ECGs available Assessment and Plan Assessment Anesthesia Assessment: Chart Reviewed Documented by User: Ada Patton DO 02/03/25 07:10 [facility] Past Medical History Medical History (Updated 11/16/24 @ 15:16 by Mushtaq Rosario MD) Hypertension Family History Family history of problems with anesthesia: No Surgical History Surgical History (Updated 02/03/25 @ 06:10 by Saira Arizmendi RN) Hx laparoscopic cholecystectomy History of Problems with Anesthesia: No (never had anesthesia previously) Social History Social History Patient Tobacco Use Status: Never used Tobacco Have you been hit, kicked, punched, or otherwise hurt by someone within the past year? If so, by whom?: No Are you DNR?: No Advance Directives: No Advance Directives Information Provided: Yes Meds Allergies Allergy/AdvReac Type Severity Reaction Status Date / Time No Known Allergies Allergy Verified 11/16/24 14:00 Home Medications ?Medication ?Instructions ?Recorded ?Confirmed ?Last Taken ?Type losartan 25 mg tablet 25 mg PO DAILY 08/19/24 02/03/25 02/02/25 History Exam Exam Date and Time: 02/03/25 0700 Height,Weight and Vital Signs: Height 5 ft 10 in Weight 99.5 kg Vital Signs Temperature 97.5 F 02/03/25 06:06 Pulse Rate 75 02/03/25 06:06 Respiratory Rate 17 02/03/25 06:06 Blood Pressure 163/106 H 02/03/25 06:06 Pulse Oximetry 97 02/03/25 06:06 Oxygen Delivery Method Room Air 02/03/25 06:06 Temperature 97.5 F 02/03/25 06:06 Pulse Rate 75 02/03/25 06:06 Respiratory Rate 17 02/03/25 06:06 Blood Pressure 137/82 02/03/25 06:23 Pulse Oximetry 97 02/03/25 06:06 Oxygen Delivery Method Room Air 02/03/25 06:06 Airway Mallampati Class: I TM Dist: >3cm Neck ROM: Full Loose/Missing/Broken Teeth: Yes (missing front tooth #9) Heart: S1S2 Lungs: CTAB Assessment and Plan Assessment Anesthesia Assessment: Anesthesia Plan Discussed and Chart Reviewed Final Anesthetic Review Family History of Problems with Anesthesia: No History of Problems with Anesthesia: No (never had anesthesia previously) NPO: Yes ASA Class: II Final Preanesthetic Review: No Changes in Pt Med Stat, Meds/Allgs Chart Reviewed, Consent Obtained/Reviewed and Anes Risks/Benef Reviewed Patient Risk: Low Procedure Risk: Intermediate Anesthetic Plan Anesthetic Plan: GA and Agree w/ Assess. and Plan Disposition: Standard PACU
--- NOTE | 2025-02-03 07:27 | P.HPSUR_ITS ---
Pre-Procedural Eval Section A - 24 Hr Update-Section A only Date of Service: 02/03/25 The patient is an INPATIENT: No Changes since office visit: Yes Patient answered all questions; No Cold of Flu in the past 2 weeks, No New Medical Problems and No Changes in Medication The patient has been examined within 24 hours of the surgical procedure. The History & Physical has been completed within 30 days and I have reviewed it.: No Section B - Complete if H&P > 30 days Chief Complaint: Calculus of bile duct without cholangitis Details of Present Illness: Patient continues to have abdominal pain in the rig ht upper quadrant Relevant Family History (Specify if Yes): No Relevant Social History: None Present Medications: see Short Stay Collaborative assessment Medical History: No relevant PMH History of Previous Operations: No relevant previous surgery Allergies: Allergies Allergy/AdvReac Type Severity Reaction Status Date / Time No Known Allergies Allergy Verified 11/16/24 14:00 Review of Systems Sugical H&P ROS: Negative: Constitution, Cardiovascular, Respiratory, Neurological, Psychiatric, Hem-Onc, Allergic/Immunologic, Genitourinary, Musculoskeletal, Integumentary, Endocrine and Eyes/Ears/Nose/Throat and Yes, Specify: Gastrointestinal (Abdominal pain right upper quadrant) Exam Surgical H&P Exam: Normal: HEENT, Normal: Heart, Normal: Lungs, Normal: Extremities, Normal: Abdomen, Normal: Skin and Normal: Neurological Plan Diagnosis/Plan: Unchanged I have reviewed the history and physical and performed a pertinent physical examination on my patient. No changes have occurred unless specified. Time Spent With Patient Time: Total time managing care of this patient today ____ minutes.
[2025-02-03] MEDS: cefoTEtan disodium 2 GM VIAL IVPUSH (07:50)
--- NOTE | 2025-02-03 08:47 | P.OP_ITS ---
Operative Note Operative Note Date of Service: 02/03/25 Narrative: Preoperative diagnosis: Recurrent biliary colic Postoperative diagnosis: Same Procedure: Laparoscopic cholecystectomy Surgeon: Mushtaq Rosario MD Upset Operator: Titus Cordero PA-C, Alberto Prather MS-3 Anesthesia: General endotracheal Indications for procedure: 39-year-old male patient presenting with complaints of right upper quadrant abdominal pain found to have multiple gallstones within the gallbladder. He presents today for laparoscopic cholecystectomy. Operative findings: Minimally inflamed and distended gallbladder with multiple small gallstones. Specimen: gallbladder Estimated blood loss: 2 mL Complications: None Procedure details: Patient was brought to the OR and placed in a supine position. After administering general anesthesia the patient's abdomen was prepped with ChloraPrep and draped in a sterile fashion. A surgical time-out was called the consent confirmed. Patient received preoperative antibiotics and Venodyne boots were in place. Local anesthesia consisting of 0.5% Sensorcaine with epinephrine was infiltrated in a periumbilical region. A 5 mm incision was made above the umbilicus in a transverse fashion. The Veress needle was then inserted while elevating abdominal cavity with towel clips. After positive drop test the abdomen was insufflated to a pressure of 15 mm of mercury. The Veress needle was then removed and a 5 mm trocar inserted. The camera was inserted in the abdomen explored. A 12 mm trocar was then placed in the epigastrium. Two 5 mm trocars placed in the right upper quadrant by the workers compensation claims assistant. The patient was placed in reverse Trendelenburg positioning and rotated to the left. The gallbladder was grasped with the fundus and retracted cephalad by the workers compensation claims assistant. The infundibulum was then grasped and retracted away from the liver bed, also by the workers compensation claims assistant. The Dolphin dissected was then used by the surgeon to dissect the peritoneum off the infundibulum to reveal the junction with the cystic duct. Cystic artery was noted slightly medial and posterior to the cystic duct. After obtaining a critical view the cystic duct was doubly clipped and divided. The cystic artery was then doubly clipped and divided. The gallbladder was then dissected off the liver bed using electrocautery with an L hook. Hemostasis was assured all times using the electrocautery. When the gallbladder is completely dissected off the liver bed was placed in an Endo-Catch bag and brought out through the epigastric incision. The gallbladder was sent to pathology for further examination. The abdomen was then re-examined. The liver bed was irrigated and suctioned dry. No bleeding or bile leak could be identified. CO2 was then evacuated and all trocars removed. Fascia was closed at the epigastric incision using a [id number] 0 Polysorb suture. Skin was closed in all incisions using a subcuticular 4 0 Polysorb suture by both the surgeon and workers compensation claims assistant. Sterile dressings consisting of Steri-Strips, 2 x 2 gauze, and Tegaderm were then applied. The patient tolerated the procedure well. Sponge instrument and needle counts reported as correct. The patient was transferred to PACU in stable condition.
== END 2025-02-03 10:40 | disposition home or self-care (01) ==
PROVIDERS: Visit Provider Surgery
PROC: 0FT44ZZ Resection of Gallbladder, Percutaneous Endoscopic Approach (ICD-10-PCS; CPT 47562; principal; 2025-02-03 07:30)
DX: K80.12 Calculus of gallbladder with acute and chronic cholecystitis without obstruction (principal); I10 Essential (primary) hypertension; Z79.1 Long term (current) use of non-steroidal anti-inflammatories (NSAID); Z79.899 Other long term (current) drug therapy
CPT/HCPCS: 47562; 88304; 99211; J0131; J1100; J1171; J1885; J2003; J2405; J2704; J3010

== ENCOUNTER → 2025-02-03 05:44 | Outpatient (BNV) | payer OTHER, SELFPAY | PROVIDERS: Visit Provider Surgery | DX: K81.2 Acute cholecystitis with chronic cholecystitis (principal) | CPT/HCPCS: 47562 ==

== ENCOUNTER 2025-02-10 09:33 | Outpatient (AMB) | payer OTHER, SELFPAY ==
--- NOTE | 2025-02-10 09:48 | A.OFFVIS_ITS ---
Vital Signs 02/10/25 09:54 Weight 216 lb BP 128/72 Blood Pressure Location Lt brachial Position Sitting Pulse 81 Intake Visit Reasons: s/p lap dilip Intake Note: Patient here s/p Laparoscopic cholecystectomy. Patient c/o: steri strips removed without incident. Never took rx pain meds. 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 Arana presents for follow up. He underwent laparoscopic cholecystectomy on 02/03/[address] Rosario for recurrent biliary colic. He tolerated the procedure well and had very minimal pain following the procedure. He did not require any analgesics at all for the pain. He is tolerating a solid diet without nausea or vomiting. He does report some loose stools after eating. He denies fevers, chills, change in skin color. He has no concerns. [facility] Medical History (Updated 11/16/24 @ 15:16 by Mushtaq Rsoario MD) Hypertension Surgical History (Updated 02/10/25 @ 10:10 by Celia Arguelles PA-C) Hx laparoscopic cholecystectomy Social History Comment: counts correct Patient Tobacco Use Status: Never used Tobacco Review of Systems Const All systems reviewed & are unremarkable except as noted in HPI and below Physical Exam Vital Signs: Last Vital Signs Pulse 81 02/10/25 09:54 BP 128/72 02/10/25 09:54 Const General: comfortable, no acute distress and alert Orientation/consciousness: patient oriented x3 Resp Effort & Inspection: normal respiratory effort and able to speak in complete sentences GI Other: steri strips removed from all incision sites, all well approximated and healed without any erythema or edema Inspection: No distended Palpation (GI): Soft to palpation, nontender and no guarding Percussion: Yes normal to percussion Skin General skin exam: no rashes or lesions noted and no jaundice Neuro General: patient oriented x3 and moves all extremities Results Reviewed Results Reviewed: Gallbladder, cholecystectomy: Acute and chronic cholecystitis; cholesterolosis Assessment & Plan Assessment & Plan (1) Hx laparoscopic cholecystectomy: Comment: 02/03/2025 Code(s): Z90.49 - Acquired absence of other specified parts of digestive tract Category: Surgical Plan 39 year old male 1 week s/p laparoscopic cholecystectomy with Dr. Rsoario for recurrent biliary colic. He tolerated the procedure well and is doing well post operatively. His abdomen is benign with well healed incisions without evidence of infection. We did discuss adhering to a low fat diet to see if this helps with his loose stools over the next few weeks. He is to follow up as needed if he develops concerns. Patient comfortable with plan. Coding Level of Care Code Global (51471) Diagnoses Hx laparoscopic cholecystectomy Z90.49
[2025-02-10 09:54] VITALS: BP 128/72; PULSE 81
== END 2025-02-10 10:04 | disposition home or self-care (01) ==
LOC: HO.HGS 09:33
PROVIDERS: Visit Provider Physician Assistant Surgical
DX: Z90.49 Acquired absence of other specified parts of digestive tract (principal)
CPT/HCPCS: 99024